=== PATIENT | female | born 1955 | race Caucasian/White ===

== ENCOUNTER 2018-08-30 07:00 | Outpatient (CLI) | payer BC, SELFPAY ==
[2018-08-30 10:13] LABS: Cholesterol 242 mg/dL (50-200); HDL Cholesterol 68 mg/dL (40-60); LDL CHOLESTEROL 140 mg/dL (<100); Triglyceride 121 mg/dL (30-150)
== END 2018-08-30 07:20 ==
PROVIDERS: PCP Family Medicine; Visit Provider Family Medicine
DX: E78.5 Hyperlipidemia, unspecified (principal)
CPT/HCPCS: 36415; 80061; 83721

== ENCOUNTER 2019-03-06 08:11 | Emergency (ER) | payer BC, SELFPAY ==
[2019-03-06] VITALS (55 sets, daily range): BP systolic 134–172; BP diastolic 62–99; PULSE 74–100; RESP 10–28; TEMP 37; O2SAT 88–100
--- NOTE | 2019-03-06 08:26 | DI.RAD_ITS ---
EXAM: XR CHEST 2V PA LATERAL INDICATION: dizziness, chest congestion. COMPARISON: No exams were available for comparison TECHNIQUE: 2D digital imaging was performed. FINDINGS: The heart is not enlarged. Lungs are generally clear with probable minimal changes of scarring. No pleural effusion seen. Mild pulmonary hyperinflation noted. IMPRESSION: Presumed COPD, no evidence of acute process.
--- NOTE | 2019-03-06 08:27 | ED.GENADUL_ITS ---
Discharge Plan Disposition Patient Disposition: HOME Condition: Fair Discharge Details Chief Complaint: Dizzy/Sync Clinical Impression: Pre-syncope, BP (high blood pressure), Acute dehydration, Tobacco use disorder, Left bundle branch block Primary Care Provider: Sunday Galvez ED Provider: Grecia Britt Home Meds and New Rx's Prescriptions: Continued [facility]-3 Krill Oil [id number] mg capsule 2 cap PO DAILY PRN RF: 0 multivitamin tablet 1 tab PO DAILY PRN RF: 0 Discharge Instructions Instructions: Dehydration (ED), Heart Block (ED) Additional Instructions: Stop smoking. Encourage hydration. You have declined admission today but may return at any time for reevaluation and potential admission. Please stay in close contact with your primary care. They should be arranging for your outpatient echocardiogram and stress testing. I have asked for these test to be performed as soon as possible. Please keep a Holter monitor on as advised by respiratory therapy. You have an appointment with your primary care on 03/11/2019. If you develop any chest pain, shortness of breath, headache, your dizziness returns or you develop other new/worsening symptoms please seek care immediately once again. Please also discussed your elevated blood pressure with your primary care. Left bundle branch block was noted on your EKG today, please discuss this more with your primary as well. Referrals: Sunday Galvez. [Primary Care Provider] - Discharge Data Discharge Date/Time-TO BE ENTERED AT DEPARTURE: 03/06/19 14:47 Medical Decision Making <AALIYAH Gonzalez - Last Filed: 03/07/19 09:53> Patient is a 63-year-old female with history of depression, anxiety, COPD. Patient is an active smoker and estimated pack-year history of 50. She reports that she was feeling well when she woke this morning. However, when grocery shopping today, she was reaching up to a top shelf to grab something and suddenly became dizzy. Reports she does have a history of vertigo and the symptoms felt very similar. Described the room is spinning and that she was also lightheaded. Was able to lower herself down to the ground and EMS was contacted. States that she was unable to stand at that time without worsening of her symptoms. She denies chest pain but states that she has had feeling of chest congestion. Patient associates this with her Smoking, states is been going on for quite some time and is unchanged. Estimates her smoking induced cough and chest congestion to have been going on for years. Denies any recent change in cough. Has not been bringing anything up with this. No recent travel. No fevers or chills. Denies MURDOCK, visual changes, no local areas of weakness. Patient does report that she daily goes up 3 flights of stairs for work but denies any increase in shortness of breath. No chest pain associated with this. This does not induce any symptoms. No pain in her back. No nausea or vomiting. No pain radiating into her arms or neck. Denies any palpitations with symptoms this morning. Currently reports more mild symptoms of lightheadedness with dizziness but symptoms are largely resolved. On exam, patient appears anxious. She is breathing quickly and deeply. At the time of transfer from EMS stretcher, she reports that her hands are tingling. EMS reports that the tachypnea was new from arrival. Her lungs are clear. Normal cardiac exam. No pedal edema or calf tenderness. Pulses are equal in upper and lower extremities. Normal abdominal exam. EKG was reviewed by Dr. Perez. Notable for a left bundle branch block. Patient reports she is never had an EKG historically so we have nothing for comparison. Negative for scar boluses criteria. No evidence of acute ischemic event at this time. I remain concern for possible cardiac etiology. This may also be an exacerbation of the patient's vertigo. Also considered pulmonary source. Plan for labs and chest x-ray. Discussed this plan with the patient who is in agreement. Currently asymptomatic. Labs reviewed, hemoglobin is elevated at 18.8. Initially, symptoms may be associated with concentration but platelet count white count are normal. This may also be associated with the patient's chronic smoking. D-dimer is normal at 365. Anion gap is elevated at 16.6 bicarb is normal, no acute electrolyte abnormalities. Glucose is elevated at 145. Unclear as to what is driving the patient's elevated anion gap. She is receiving IV fluids and we will recheck. Troponin is less than 0.05. I discussed these findings with the patient. She is resting currently is currently asymptomatic. Awaiting results from chest x- ray and plan to repeat troponin. Chest x-ray reviewed by radiologist: FINDINGS: The heart is not enlarged. Lungs are generally clear with probable minimal changes of scarring. No pleural effusion seen. Mild pulmonary hyperinflation noted. IMPRESSION: Presumed COPD, no evidence of acute process. Repeat EKG repeat troponin remains stable. Anion gap has corrected to 10 after IV fluids. Patient remains in asymptomatic and is resting comfortably. The patient and I discussed disposition options. This patient has a presumably new left bundle branch block in the setting of presyncope, feel she should be continued to be monitored. Discussed this plan with the patient who is in agreement. Consulted with hospitalist who advised that stress test would not be possible for the next 4 days. She advised that patient would need echo as well. She advised discussing with the need inpatient waiting with the patient and further discuss inpatient versus outpatient management. I discussed this with the patient and that, per hospitalist, patient would likely be sitting in a monitored bed for the next 4 days. At this point, the patient is preferring discharge. She does live locally and is able to return with any new or worsening symptoms quickly. We will place the patient on a Holter monitor. I called the primary care office and made appointment for next week in follow-up. I also asked that they help with the prior authorizations before but the echo and stress test and that these may be completed as soon as possible. I am hoping the echocardiogram will be able to perform tomorrow and that the stress test will be able to perform Sunday. Patient was given very strict return precautions. She lives with her son who is also present at this time we have discussed. She is able to return immediately with any new or worsening symptoms. I did offer transfer to another hospital as ideally the patient would be admitted and she declines this option as well. All of her questions and concerns were addressed . <Dameon Perez DO - Last Filed: 03/06/19 11:31> EKG 8: 17 Rate 90, NM 138, QTc 546, QRS 142, sinus rhythm, nonspecific QRS widening, appears consistent with a slightly atypical left bundle branch block, Negative for Scarbossa criterion. No prior EKG for comparison. Alternatively there may be a component of left ventricular hypertrophy, based on V3, which may be giving the atypical left bundle branch block like morphology. HPI <AALIYAH Gonzalez - Last Filed: 03/07/19 09:53> General Mode of arrival: EMS . Date/Time Provider Initiated Documentation: 03/06/19 08:18 . Limitations to Documentation: no limitations . Information obtained by: patient, EMS and RN notes reviewed . History of Present Illness 63 year old F presents to the emergency department with the chief complaint of Presyncopal event, described as moderate and similar to prior episodes (Reports similar to when she had vertigo historically), Quality is described as aching (Reports some vague discomfort in her chest but states that this is chronic and unchanged), and is localized to the chest. Patient reports no radiation. Patient started experiencing this minute(s) and it has been constant. other things that improve symptom(s), (Improvement of symptoms when supine) Movement worsens symptoms . Patient notes chest pain and cough (Reports chronic smoker's cough); denies diaphoresis, fever/chills, headaches, loss of appetite, nausea/vomiting, rash, shortness of breath, syncope and weakness. Patient did receive the following treatments prior to arrival, none Related Data Home Medications Medication Instructions Recorded Confirmed krill 500 mg-omega 3 115 mg-dha 30 2 cap PO DAILY PRN cap 05/29/18 03/06/19 mg-epa 64 [id number] capsule multivitamin 1 tab PO DAILY PRN tab 05/29/18 03/06/19 Allergies Allergy/AdvReac Type Severity Reaction Status Date / Time No Known Allergies Allergy Unverified 03/06/19 08:37 General Stated Complaint: Dizzy/Sync DENIA: 2 Review of Systems <AALIYAH Gonzalez - Last Filed: 03/07/19 09:53> Constitutional Constitutional: Reports as per HPI, Denies chills, Denies fever(s), Denies headache(s), Denies lethargy, Denies poor appetite and Denies weakness Eyes Eyes: Denies change in vision ENT Ears, Nose, Mouth, and Throat: Reports vertigo, Reports dizziness and Denies headache(s) Cardiovascular Cardiovascular: Reports as per HPI, Reports chest pain (low grade central chest discomfort that murdock been chronic for years and is un), Denies chest pain at rest, Denies chest pain with activity, Denies syncope, Denies pedal edema, Denies irregular heart rhythm, Denies claudication, Denies leg edema, Reports lightheadedness, Denies radiating jaw, neck or arm pain, Denies palpitations, Denies dyspnea, Denies dyspnea on exertion and Denies orthopnea Respiratory Respiratory: Reports as per HPI, Reports chest congestion, Reports cough (chronic, unchanged, associates with smoking), Denies pain on inspiration, Denies pain with cough, Denies dyspnea, Denies dyspnea on exertion and Denies wheezing Gastrointestinal Gastrointestinal: Reports as per HPI, Denies abdominal pain, Denies diarrhea, Denies nausea and Denies vomiting Musculoskeletal Musculoskeletal: Reports as per HPI, Denies abnormal gait, Denies back pain, Denies numbness and Denies tingling Integumentary/Breasts Skin/Breast: Reports as per HPI and Denies rash Neurologic Neurologic: Reports as per HPI, Denies abnormal movements, Denies abnormal speech, Denies abnormal gait, Denies confusion, Reports vertigo, Reports dizziness, Denies syncope, Denies headache(s), Denies lack of coordination, Denies numbness, Denies radicular pain, Denies sensory deficit, Denies tingling and Denies weakness Psychiatric Psychiatric: Denies confusion Endocrine Endocrine: Denies palpitations Allergic/Immunologic Allergic/Immunologic: Denies wheezing PFSH <AALIYAH Gonzalez - Last Filed: 03/07/19 09:53> Surgical History EMERGENT OPHORECTOMY 2005; TORSION OF RIGHT OVARY Family History Mother , 86 Diabetes Essential hypertension Heart disease Hyperlipidemia Stroke Father , 79 Diabetes Alcohol abuse Essential hypertension Heart disease Stroke Sister , 44 Cerebral aneurysm Stroke Paternal Grandmother Neoplasm UTERINE Maternal Grandmother Stroke Son Diabetes Social History Smoking/Tobacco Use Status: Current every day Tobacco Type: cigarettes Second Hand Exposure: Yes Alcohol Intake: current Alcohol Intake frequency: 0-2 drinks per day Alcohol type: beer and wine Drug use: Never Substance use type: does not use Household members: children Housing: other Details: [address] MOBILE HOME Pets and animals: Yes Pets and animals: dog(s) Sexually active: No Do you think of yourself as: straight/heterosexual Current gender identity: female What is your relationship status?: How often do you talk on the phone with friends or family?: three or more times per week How often do you get together with friends or relatives?: three or more times per week How often do you attend mormon or pentecostalism services?: 1-3 times per year Do you belong to any clubs or organized social groups?: no Panel score (0-1 are the most socially isolated patients): 1 What type of physical activity do you participate in: walking Duration: < 15 minutes/day Frequency: 3-4 times per week Deyanira/Sikhism: Sabianist Do you feel safe at home: Yes Do you feel safe in your relationship?: Yes Exam <AALIYAH Gonzalez - Last Filed: 03/07/19 09:53> Const General: cooperative, healthy appearing, no acute distress, well developed and anxious Nutritional Appearance: average body habitus and well nourished Orientation: alert, awake and oriented x3 HENMT Head: normal to inspection Ears: hearing grossly normal bilaterally Mouth: moist mucous membranes Chest Chest: normal inspection of the chest, normal palpation of entire chest wall and no crepitus Resp Effort & Inspection: normal respiratory effort, able to speak in complete sentences and no respiratory distress Auscultation: clear to auscultation bilaterally, no rales, no rhonchi and no wheezes Cardio Rate: regular rate Rhythm: regular rhythm Heart Sounds: S1 normal and S2 normal GI Inspection: normal to inspection, no edema and non-distended Palpation: soft, no hepatosplenomegaly, not firm, no guarding, not rigid and nontender Auscultation: normal bowel sounds Back/Spine/Pelvis Back: no CVA tenderness Thoracic/Lumbar Spine: thoracic and lumbar spine normal to inspection Skin General skin exam: no rashes or lesions noted Trauma: no lacerations or abrasions Neuro General: alert, awake and oriented x3 Cognition: normal cognition Speech: speech normal Extrem General: normal to inspection, normal capillary refill, no pedal edema and no calf tenderness Psych Appearance: grossly normal and well kempt Mental Status: mental status grossly normal Speech and Movement: speech and movement normal Course <AALIYAH Gonzalez - Last Filed: 03/07/19 09:53> Vital Signs Vital signs: Vital Signs Temperature 37.0 C 03/06/19 08:09 Pulse 87 03/06/19 08:09 Respiratory Rate 17 03/06/19 08:09 Blood Pressure 166/86 H 03/06/19 08:09 Pulse Oximetry 99 03/06/19 08:09 Temperature 37.0 C 03/06/19 08:09 Temperature Source Temporal Artery Scan 03/06/19 08:09 Pulse 87 03/06/19 08:09 Respiratory Rate 17 03/06/19 08:09 Blood Pressure 166/86 H 03/06/19 08:09 Blood Pressure Position Supine 03/06/19 08:09 Pulse Oximetry 99 03/06/19 08:09 Oxygen Delivery Method Room Air 03/06/19 08:09 Oxygen Flow Rate 0 03/06/19 08:09
[2019-03-06] MEDS: Aspirin 81 MG CHEW (08:29)
[2019-03-06] MEDS: Normal Saline 1,000 ML 500 ML IV (08:30)
[2019-03-06] MEDS: Normal Saline Flush 10 ML SYR IVP (08:30)
[2019-03-06 08:48] LABS: Abs Immature Grans 0.03 k/cumm (0.0-0.09); Absolute Basophil Count 0.03 k/cumm (0.0-0.2); Absolute Eosinophil Count 0.07 k/cumm (0.0-0.7); Absolute Lymphocyte Count 2.25 k/cumm (1.2-3.4); Absolute Monocyte Count 0.69 k/cumm (0.11-0.7); Absolute Neutrophil Count 4.73 k/cumm (1.2-6.7); Basophils % 0.4; Eosinophils % 0.9; HCT 56.5 % (36.0-46.0); HGB 18.8 g/dL (12.0-15.5); Immature Grans % 0.4; Lymphocytes % 28.8; Mean Corp. HGB Concentration 33.3 g/dL (32.0-36.0); Mean Corpuscular Hemoglobin 33.1 pg (27.0-33.0); Mean Corpuscular Volume 99.5 fL (80-95); Mean Platelet Volume 9.1 fL (8.0-11.0); Monocytes % 8.8; Neutrophils % 60.7; Platelet Count 246 x1000/uL (130-400); RBC 5.68 m/cumm (4.00-5.20); RBC Distribution Width 15.9 % (11.7-14.6)
[2019-03-06 08:57] LABS: ALT 21 U/L (14-59); AST 20 U/L (15-37); Albumin 3.8 g/dL (3.4-5.0); Alkaline Phosphatase 92 U/L (46-116); Anion Gap 16.6 mmol/L (3-11); BUN 7 mg/dL (7-18); Bilirubin, Total 0.6 mg/dL (0.2-1.0); CO2 22.4 mmol/L (21.0-32.0); CREATININE 0.93 mg/dL (0.55-1.02); Calcium 9.2 mg/dL (8.5-10.1); Chloride 103 mmol/L (98-107); Glucose 145 mg/dL (70-100); Magnesium 1.8 mg/dL (1.8-2.4); Potassium 3.8 mmol/L (3.5-5.1); Sodium 142 mmol/L (136-145); Total Protein 7.6 g/dL (6.4-8.2)
[2019-03-06 09:03] LABS: Troponin I < 0.05 ng/mL (0.00-0.06)
[2019-03-06] MEDS: Mylanta Suspension 30 ML CUP (09:17)
[2019-03-06] MEDS: Lidocaine 2% Viscous 15 ML CUP (09:17)
[2019-03-06 09:23] LABS: D-Dimer 365 ng/mlFEU (<500)
[2019-03-06 09:49] LABS: FREE T4 0.85 ng/dL (0.76-1.46)
[2019-03-06 10:26] LABS: Bilirubin Negative (Negative); Blood Trace-intact (Negative); Clarity Clear (Clear); Glucose Negative (Negative); Ketones 15 mg/dL (Negative); Leukocyte Esterase Negative (Negative); Nitrite Negative (Negative); Urobilinogen 0.2 EU/dL (Up TO 0.2)
[2019-03-06] MEDS: Normal Saline 1,000 ML 1000 ML IV (10:34)
[2019-03-06 10:37] LABS: Epithelial Cells Few HPF (Negative); RBC 0-2 (0-2); WBC 0-2 HPF (0-5)
[2019-03-06 10:38] LABS: Bacteria Negative HPF (Negative); C & S Indicated? No; Casts Negative LPF (Negative); Crystals Negative HPF (Negative); Mucus Negative (Negative)
[2019-03-06 11:16] LABS: BE (Venous) -1.1 mmol/L (-3-3); HCO3 (Venous) 24 mmol/L (22-28); O2 Sat (Venous) 89 % (70-80); TCO2 (Venous) 20 mmol/L (22-29); pCO2 (Venous) 38 mm/Hg (34-47); pH (Venous) 7.41 (7.32-7.43); pO2 (Venous) 56 mm/Hg (28-44)
[2019-03-06 11:27] LABS: BUN 6 mg/dL (7-18); CREATININE 0.65 mg/dL (0.55-1.02); Calcium 8.1 mg/dL (8.5-10.1); Chloride 109 mmol/L (98-107); Glucose 94 mg/dL (70-100); Potassium 3.8 mmol/L (3.5-5.1); Sodium 144 mmol/L (136-145)
[2019-03-06 11:54] LABS: Troponin I < 0.05 ng/mL (0.00-0.06)
[2019-03-06 12:04] LABS: Salicylate 4.7 mg/dL (2.8-20.0)
== END 2019-03-06 14:47 | disposition home or self-care (01) ==
PROVIDERS: Emergency Provider Physician Assistant; PCP Family Medicine
DX: R55 Syncope and collapse (principal); I10 Essential (primary) hypertension; E86.0 Dehydration; I44.7 Left bundle-branch block, unspecified
CPT/HCPCS: 36415; 80048; 80053; 82805; 93005; 96360; 96361; 99285; 71046; 80329; 81003; 81015; 83735; 84439; 84443; 84484; 85025; 85379; 93010; 93225

== ENCOUNTER 2019-03-10 08:42 | Outpatient (CLI) | payer BC, SELFPAY ==
--- NOTE | 2019-03-10 12:52 | HOLT_ITS ---
Holter Monitor Report Holter Monitor Note: This is a 48-hour event monitor placed for presyncope. ?Sinus rhythm was present for greater than 99% of the beats. Maximum heart rate 124 bpm, minimum heart rate 56 bpm, mean heart rate 78 bpm ?There were rare (less than 1%) premature atrial contractions and no couplets or triplets. ?There were no episodes of supraventricular tachycardia ?There were rare (less than 1%) premature ventricular contractions there was one couplet. ?There were no episodes of atrial fibrillation, no episodes of high degree AV block, and no pauses greater than 3 seconds. CC:JONELLE MTZ MD Dictated by: RYNE PLATA MD Dictated:: [id number] Transcribed Date: 03/10/19 Transcribed Time: 1252By: KHUSHI
== END 2019-03-10 09:02 ==
PROVIDERS: PCP Family Medicine; Visit Provider Family Medicine
DX: R55 Syncope and collapse (principal); I49.1 Atrial premature depolarization; I49.3 Ventricular premature depolarization
CPT/HCPCS: 93226

== ENCOUNTER 2019-03-25 01:48 | Outpatient (CLI) | payer BC, SELFPAY ==
--- NOTE | 2019-03-10 12:52 | W.HOLTRPT ---
Holter Monitor Report Holter Monitor Note: This is a 48-hour event monitor placed for presyncope. ?Sinus rhythm was present for greater than 99% of the beats. Maximum heart rate 124 bpm, minimum heart rate 56 bpm, mean heart rate 78 bpm ?There were rare (less than 1%) premature atrial contractions and no couplets or triplets. ?There were no episodes of supraventricular tachycardia ?There were rare (less than 1%) premature ventricular contractions there was one couplet. ?There were no episodes of atrial fibrillation, no episodes of high degree AV block, and no pauses greater than 3 seconds.
--- NOTE | 2019-03-25 07:22 | DI.US_ITS ---
APPROVED REPORT Other Information Study Quality: Fair Conclusion The left ventricular size and wall thickness are normal Estimated EF is 45-50%. Septal motion is co nsistent with an interventricular conduction delay/bundle branch block. There is otherwise mild globa l hypokinesis There is Stage II diastolic dysfunction There is no chamber enlargement There is no significant valuvlar disease EXAM: Comprehensive 2D, Doppler, and color-flow Echocardiogram Rhythm: BBB Indications: chest pain r07.9 Left Ventricle The left ventricle is top normal size. Left ventricular systolic function is mildly decreased. There is normal left ventricular wall thickness. Mild global hypokinesis Septal motion c/w IVCD The diastol ic function is abnormal. LVEF is estimated to be 45-50% Septal motion suggests LBBB Right Ventricle The right ventricle is normal size. The right ventricular systolic function is normal. Atria The left atrium size is normal. The right atrium size is normal. Aortic Valve Aortic valve is probably trileaflet. There is no aortic valvular stenosis. No aortic regurgitation is present. Mitral Valve The mitral valve is mildly thickened but opens well. Trivial mitral regurgitation. Tricuspid Valve The tricuspid valve is normal in structure. Trace tricuspid regurgitation. Great Vessels The aortic root is normal in size. IVC is normal in size and collapses >50% with inspiration. Pericardium Prominent anterior epicardial fat pad is present. 2D Dimensions IVSd 1.02 cm F: 0.6-1.0 LV EDV A2C 90.90 mL PWd 1.03 cm F: 0.6 - 1.0 LV EDV A4C 75.60 mL LVDd 5.53 cm F: 3.9 - 5.3 LA Volume Index A2C 13.03 mL/m2 LVDs 4.41 cm F: 2.2 - 3.5 LA Volume Index A4C 22.63 mL/m2 Aortic Root 2.90 cm F: 2.7 - 3.3 LA Volume Index Biplane 20.55 mL/m2 RA Area A4C 8.94 cm2 LA Area A4C 14.68 cm2 LVOT 2.18 cm (M/F) 1.5-2.5 LA Area A2C 9.31 cm2 Ascending Aorta 2.80 cm F: 2.3 - 3.1 EF AP4 49.47 % LVEF (Teich) 41.03 % EF AP2 49.72 % LVEF (Price's) 49.92 % F: 54 - 74 EF BP 49.92 % FS 20.30 % LV Diastology E/A Ratio 0.5 MED E' 0.04 (>0.07 m/s) LV E/e MED 9.28 (<14) Aortic Valve LVOT Area 3.72 cm2 LVOT Peak Len. 0.65 m/s LVOT Mean Len. 0.47 m/s LVOT Peak Gr. 1.67 mmHg RAJINDER Vmax Index 1.57 cm2/m2 LVOT Mean Gr. 0.99 mmHg LVOT VTI 0.13 m RAJINDER Mean Len. Index 1.39 cm2/m2 AoV Peak Len. 0.90 (0.5-1.3 m/s) AoV Mean Len. 0.73 m/s AO Peak GR. 3.21 mmHg AO Mean GR. 2.25 (<5 mmHg) AO VTI 0.16 (0.18-0.25 m) RAJINDER (VTI) 3.00 (2.5-4.5 cm2) RAJINDER (VTI) Index 1.75 cm/m2 Mitral Valve MV E Max Len. 0.40 (0.4-1.3 m/s) MVA VTI 6.91 (4.0-6.0 cm2) MV A Velocity 0.80 (0.4-1.3 m/s) E/A Ratio 0.50 Pulmonary Valve PV Peak Velocity 0.74 (0.5-1.5 m/s) Tricuspid Valve TR P. Velocity 2.57 m/s TV Regurg Vmax 2.57 m/s TR P. Gradient 26.52 mmHg
== END 2019-03-25 02:08 ==
PROVIDERS: PCP Family Medicine; Visit Provider Family Medicine
DX: I44.7 Left bundle-branch block, unspecified; I50.1 Left ventricular failure, unspecified; I10 Essential (primary) hypertension; R07.9 Chest pain, unspecified
CPT/HCPCS: 93306

== ENCOUNTER 2019-06-09 00:50 | Outpatient (CLI) | payer BC, SELFPAY ==
--- NOTE | 2019-06-09 09:42 | DI.NM_ITS ---
APPROVED REPORT Exam: Pharmacologic Patient Location: Out-Patient Room/Bed: Stress Nurse: Belen Guevara RN BMI: 21.29 Baseline Rhythm: Sinus Rhythm with Left BBB and Long QT interval Indications: Patient reports episode of ???Dizzyness??? while grocery shopping in February when she wa s reaching for something on the top shelf. Patient was brought to the ER as she was unable to stand w ithout making the dizziness worse. Medical History Medical History: History of left BBB, vertigo, anxiety, depression Cardiac Medications: Atorvastatin Allergies: No known drug allergies Cardiac Risk Factors: FHX of CAD, Hyperlipidemia, Smoking Previous Cardiac Procedures: None Pretest Chest Pain Characteristics: None Exercise History: Sedentary Physical Disabilities: None Lung Sounds: Crackles in bases bilaterally Heart Sounds: Regular Stress Test Details Test: Pharmacologic stress testing performed using 0.4 mg of regadenoson per 5 mL given IV over 10 s econds. Reason for pharmacologic stress test: LBBB. Rest Isotope: Tc-99m Sestamibi. Dose: 11.0 Date: 06/09/2019 Injection Time: 0845 Stress Isotope: Tc-99m Sestamibi. Dose: 37.0 Date: 06/09/2019 Injection Time: 1010 HR Max Heart Rate (APMHR): 155 bpm Resting HR Supine: 88 bpm Target HR (85% APMHR): 131 bpm Max HR Achieved: 102 bpm % of APMHR: 65 HR response to stress: Normal HR response to stress BP Resting BP Supine: 98/60 mmHg Max BP: 120/80 mmHg BP response to stress: Normal blood pressure response to stress. ECG Resting ECG: Sinus Rhythm with Left BBB and Long QT interval Stress ECG: Sinus Tachycardia LBBB ST Change: normal Arrhythmia: none Recovery ECG: Sinus Rhythm, LBBB Recovery ST Change: normal Recovery Arrhythmia: None Clinical Stress Symptoms: Right and Left Upper Arm Aching pain (4/10) at 43 seconds post Lexiscan injection that subsided at 3 minutes 47 seconds post Lexiscan injection. Chest pressure (4/10) at 43 seconds post Lexiscan injection that subsided by 5 minutes 41 seconds post Lexiscan injection. Stress ECG Conclusion 1. The ECG portion of this exam is nondiagnostic due to baseline left bundle branch block. Protocol Used: Regadenoson Stress Test Summary STAGE HR BP Symptoms NOTES Supine 85 98/60 Standing 1 min 102 120/80 2 min 3 min 101 100/68 4 min 5 min 6 min 94 100/80 7 min 8 min 9 min 10 min 1 min recovery 3 min recovery 6 min recovery MPI Conclusion Ejection fraction with stress was 25%. No wall motion abnormalities noted There is no evidence of reversible perfusion defect. Interpretation of the study was affected by significant bowel uptake. This represents a normal SPECT perfusion exam. Radiologist Interpretation Radiologist Interpretation by: Antonio Sage MD Interpretation Date/Time: 06/10/2019 13:35:19
[2019-06-09] MEDS: Regadenoson 0.4 MG/5 ML SYR IVP (11:08)
== END 2019-06-09 01:10 ==
PROVIDERS: PCP Family Medicine; Visit Provider Internal Medicine Cardiovascular Disease
DX: R55 Syncope and collapse (principal); R42 Dizziness and giddiness; I44.7 Left bundle-branch block, unspecified; E78.5 Hyperlipidemia, unspecified; F41.8 Other specified anxiety disorders; F17.200 Nicotine dependence, unspecified, uncomplicated; Z82.49 Family history of ischemic heart disease and other diseases of the circulatory system
CPT/HCPCS: 78452; 93017; J2785

== ENCOUNTER 2019-07-09 02:18 | Outpatient (RCR) | payer BC, SELFPAY ==
[2019-07-09 07:17] LABS: Abs Immature Grans 0.01 k/cumm (0.0-0.09); Absolute Basophil Count 0.04 k/cumm (0.0-0.2); Absolute Eosinophil Count 0.08 k/cumm (0.0-0.7); Absolute Monocyte Count 0.54 k/cumm (0.11-0.7); Absolute Neutrophil Count 4.09 k/cumm (1.2-6.7); Basophils % 0.6; Eosinophils % 1.1; HCT 53.2 % (36.0-46.0); Immature Grans % 0.1 %; Lymphocytes % 33.5; Mean Corp. HGB Concentration 33.8 g/dL (32.0-36.0); Mean Corpuscular Hemoglobin 32.5 pg (27.0-33.0); Mean Platelet Volume 9.4 fL (8.0-11.0); Monocytes % 7.5; Neutrophils % 57.2; Platelet Count 227 x1000/uL (130-400); RBC 5.54 m/cumm (4.00-5.20); RBC Distribution Width 15.2 % (11.7-14.6); White Blood Cell Count 7.16 k/cumm (4.4-10.8)
[2019-07-09] MEDS: Cosyntropin 0.25 MG VIAL IV (07:23)
[2019-07-09] MEDS: Normal Saline Flush 10 ML SYR IVP (07:25)
[2019-07-09 07:40] LABS: ALT 32 U/L (14-59); AST 21 U/L (15-37); Albumin 3.7 g/dL (3.4-5.0); Alkaline Phosphatase 72 U/L (46-116); Anion Gap 9.4 mmol/L (3-11); BUN 9 mg/dL (7-18); Bilirubin, Total 0.6 mg/dL (0.2-1.0); CO2 27.6 mmol/L (21.0-32.0); CREATININE 0.73 mg/dL (0.55-1.02); Calcium 8.8 mg/dL (8.5-10.1); Chloride 105 mmol/L (98-107); Glucose 100 mg/dL (74-106); Potassium 4.3 mmol/L (3.5-5.1); Sodium 142 mmol/L (136-145); TSH 10.06 uIU/mL (0.36-3.74); Total Protein 7.1 g/dL (6.4-8.2)
[2019-07-09 17:14] LABS: Cortisol (Baseline) 16 ug/dL (4-23)
== END 2019-07-26 23:59 | disposition home or self-care (01) ==
LOC: INF 02:18
PROVIDERS: PCP Family Medicine; Visit Provider Family Medicine
DX: E27.1 Primary adrenocortical insufficiency (principal)
CPT/HCPCS: 36415; 80048; 80053; 80400; 87206; 96374; 84439; 84443; 85025; J0834

== ENCOUNTER 2019-12-30 01:44 | Outpatient (CLI) | payer BC, SELFPAY ==
[2019-12-30 12:39] LABS: Abs Immature Grans 0.02 10^3/uL (0.0-0.06); Absolute Basophil Count 0.05 10^3/uL (0.0-0.2); Absolute Eosinophil Count 0.04 10^3/uL (0.0-0.7); Absolute Lymphocyte Count 2.32 10^3/uL (1.2-3.4); Absolute Monocyte Count 0.83 10^3/uL (0.1-0.8); Absolute Neutrophil Count 5.61 10^3/uL (1.2-6.7); Basophils % 0.6; Eosinophils % 0.5; HCT 44.7 % (36.0-46.0); HGB 14.5 g/dL (11.2-15.7); Immature Grans % 0.2; Lymphocytes % 26.2; MCHC 32.4 % (32.0-36.0); MCV 101.6 fL (80-95); Monocytes % 9.4; Neutrophils % 63.1; Nucleated RBC 0 %; Platelet Count 261 10^3/uL (130-400); RDW 14.9 % (11.7-14.6); RDW-SD 55.8 fL; WBC 8.87 10^3/uL (4.4-10.8)
[2019-12-30 12:54] LABS: TSH (W/Ref FT4) 3.12 uIU/mL (0.36-3.74)
== END 2019-12-30 02:04 ==
PROVIDERS: PCP Family Medicine; Visit Provider Family Medicine
DX: E03.9 Hypothyroidism, unspecified
CPT/HCPCS: 36415; 84443; 85025

== ENCOUNTER 2020-08-10 22:27 | Outpatient (REF) | payer BC, SELFPAY ==
[2020-08-10 21:32] LABS: Calculated LDL 67 mg/dL (<100); Cholesterol 191 mg/dL (<200); HDL Cholesterol 106 mg/dL (40-60); Triglyceride 92 mg/dL (<150)
[2020-08-10 22:00] LABS: FREE T4 0.85 ng/dL (0.76-1.46)
== END 2020-08-10 22:28 | disposition home or self-care (01) ==
LOC: LBN 22:27
PROVIDERS: PCP Family Medicine; Visit Provider Family Medicine
DX: E78.5 Hyperlipidemia, unspecified (principal); E03.9 Hypothyroidism, unspecified
CPT/HCPCS: 80061; 84439; 84443

== ENCOUNTER 2020-11-17 02:04 | Outpatient (CLI) | payer BC, SELFPAY ==
[2020-11-17 12:56] LABS: TSH (W/Ref FT4) 2.37 uIU/mL (0.36-3.74)
== END 2020-11-17 02:05 | disposition home or self-care (01) ==
LOC: LOS 02:04
PROVIDERS: PCP Family Medicine; Visit Provider Family Medicine
DX: E03.9 Hypothyroidism, unspecified (principal)
CPT/HCPCS: 36415; 84443

== ENCOUNTER 2021-01-07 03:05 | Outpatient (CLI) | payer BC, SELFPAY ==
--- NOTE | 2021-01-07 08:48 | DI.MAMMO_ITS ---
Exam(s) MAMMO SCREENING EXAM: MAMMO SCREENING CLINICAL HISTORY: screening,Z12.39 TECHNIQUE: Bilateral full field digital CC and MLO mammographic images were obtained with 3D tomosyn thesis and utilizing computer aided detection (CAD). COMPARISON: None. FINDINGS: Masses/Architectural Distortion: There is an asymmetry in the upper left breast on the MLO view. Microcalcifications: No suspicious pleomorphic-type are seen. Skin Thickening/Nipple Retraction: None. IMPRESSION: 1. Asymmetry in the upper left breast on the MLO view. 2. This area should be further evaluated with a spot compression view. Ultrasound may be indicated a t that time. BI-RADS Category 0 - Assessment Incomplete: Need additional imaging evaluation Breast Density - Category B - Scattered areas of fibroglandular density Breast density category C or D implies that the patient has dense breast tissue. Dense breast tissue is very common and is not abnormal but dense breast tissue can make it harder to find cancer on a ma mmogram. Also, dense breast tissue may increase their breast cancer risk. This information about the result of the mammogram report was provided to the patient to raise their awareness. Use this report when you speak with the patient about their risks for breast cancer, which includes their family hist ory. At that time, you may recommend for more screening tests (Ultrasound or MRI) as they might be us eful based on their risk. A negative radiographic report should not delay biopsy if a dominant or clinically suspicious mass is present. Up to ten percent of cancers are not identified on mammography. A negative report may reinforce clinical impression. Adenosis and dense breasts may obscure an underlying neoplasm. False positive reports average 6 to 10%. Patient will receive a letter notifying them of these results.
== END 2021-01-07 03:25 ==
PROVIDERS: PCP Family Medicine; Visit Provider Family Medicine
DX: Z12.31 Encounter for screening mammogram for malignant neoplasm of breast (principal); R92.8 Other abnormal and inconclusive findings on diagnostic imaging of breast
CPT/HCPCS: 77063; 77067

== ENCOUNTER 2021-01-27 01:32 | Outpatient (CLI) | payer BC, SELFPAY ==
--- NOTE | 2021-01-27 | DI.MAMMO_ITS ---
Exam(s) MAMMO SCREEN CALL BACK UNI EXAM: MAMMO SCREEN CALL BACK UNI CLINICAL HISTORY: F/U MAMMO, LT BREAST ASYMMETRY,R92.8 TECHNIQUE: Spot compression left MLO view and tomographic imaging were performed. COMPARISON: 2009 and 07 January 2013 FINDINGS: No suspicious masses or suspicious microcalcifications are seen. No persistent abnormality is seen on the additional views performed. The findings are consistent wit h overlying fibroglandular tissue. There has been no significant change from prior exam. IMPRESSION: BI-RADS Category 1, Negative Yearly screening mammography is recommended. Breast Density - Category B, scattered fibroglandular densities.
== END 2021-01-27 01:52 ==
PROVIDERS: PCP Family Medicine; Visit Provider Family Medicine
DX: R92.8 Other abnormal and inconclusive findings on diagnostic imaging of breast (principal)
CPT/HCPCS: 77063; 77067

== ENCOUNTER 2021-02-28 18:06 | Outpatient (CLI) | payer BC, SELFPAY ==
--- NOTE | 2021-02-28 18:15 | RT.EKG_ITS ---
APPROVED REPORT Exam: Resting ECG Reason for Exam: Exhaustion/sob Patient Location: O HR:108 bpm ECG Measurements Heart Rate 108 AXIS IA 151 P 0 QRSd 166 QRS -58 QT 418 T 113 QTc 561 Conclusion Sinus tachycardia...rate> 99 Probable left atrial enlargement...P >50mS, <-0.10mV V1 Left bundle branch block...QRSd>120, broad/notched R ST elevation secondary to IVCD...Multiple VCG criteria
--- NOTE | 2021-02-28 20:10 | DI.VRAD_ITS ---
PROCEDURE INFORMATION: Exam: XR Chest Exam date and time: 02/28/2021 6:24 PM Age: 65 years old Clinical indication: Shortness of breath TECHNIQUE: Imaging protocol: XR of the chest. Views: 2 views. COMPARISON: CT CHEST LUNG CANCER SCREEN 19/08/2020 14:04 FINDINGS: Lungs: Prominent central pulmonary vasculature. No focal consolidation. Pleural spaces: Bilateral pleural effusions. Heart/Mediastinum: Marked cardiomegaly. Vasculature: Atherosclerotic disease. Bones/joints: Unremarkable for patient's age. IMPRESSION: Marked cardiomegaly. Pulmonary vascular congestion. Bilateral pleural effusions. Dictated and Authenticated by: Olga Guadarrama MD. Ordering:CITLALI Martinez MD
== END 2021-02-28 18:07 | disposition home or self-care (01) ==
PROVIDERS: PCP Family Medicine; Visit Provider Nurse Practitioner Family
DX: R53.83 Other fatigue (principal)
CPT/HCPCS: 93010

== ENCOUNTER 2021-02-28 19:05 | Emergency (ER) | payer BC, SELFPAY ==
[2021-02-28] VITALS (101 sets, daily range): BP systolic 103–109; BP diastolic 72–84; PULSE 102–109; RESP 15–50; TEMP 37.2; O2SAT 92–96
--- NOTE | 2021-02-28 19:00 | RT.EKG_ITS ---
APPROVED REPORT Exam: Resting ECG Reason for Exam: SHOB Patient Location: E HR:105 bpm ECG Measurements Heart Rate 105 AXIS SC 148 P 83 QRSd 169 QRS -58 QT 421 T 106 QTc 557 Conclusion Sinus tachycardia...rate> 99 Atrial premature complex...SV complex w/ short R-R interval Probable left atrial enlargement...P >50mS, <-0.10mV V1 Left bundle branch block...QRSd>120, broad/notched R ST elevation secondary to IVCD...Multiple VCG criteria does not meet sgarbossa criteria
--- NOTE | 2021-02-28 19:15 | RT.EKG_ITS ---
APPROVED REPORT Exam: Resting ECG Reason for Exam: SOB Patient Location: E HR:106 bpm ECG Measurements Heart Rate 106 AXIS MI 149 P 84 QRSd 166 QRS -57 QT 414 T 107 QTc 549 Conclusion Sinus tachycardia...rate> 99 Probable left atrial enlargement...P >50mS, <-0.10mV V1 Left bundle branch block...QRSd>120, broad/notched R ST elevation secondary to IVCD...Multiple VCG criteria
--- NOTE | 2021-02-28 19:25 | ED.GENADUL_ITS ---
Discharge Plan Disposition Patient Disposition: OTHER Condition: Serious Discharge Details Clinical Impression: Dilated cardiomyopathy, Non-ST elevation CA (NSTEMI), Heart failure, Transaminitis Primary Care Provider: Sunday Galvez ED Provider: Grecia Britt Home Meds and New Rx's Prescriptions: No Action Spiriva Respimat 1.25 mcg/actuation mist 2 puff inhalation DAILY Qty: 4 RF: 5 atorvastatin 20 mg tablet 20 mg PO DAILY Qty: 90 RF: 6 omeprazole 20 mg capsule,delayed release(DR/EC) 20 mg PO DAILY Qty: 30 RF: 0 multivitamin tablet 1 tab PO DAILY PRN RF: 0 levothyroxine 75 mcg tablet 75 mcg PO DAILY Qty: 90 RF: 3 albuterol sulfate [Ventolin HFA] 90 mcg/actuation HFA aerosol inhaler 2 puff inhalation QID PRN (Reason: shortness of breath or wheezing) Qty: 8.5 RF: 3 Discharge Data Discharge Date/Time-TO BE ENTERED AT DEPARTURE: 02/28/21 22:35 Medical Decision Making Patient is a pleasant 65-year-old female presenting today, sent over by the urgent care, with chief complaint of shortness of breath. Patient reports she has chronic shortness of breath with this but this is increased today. States that shortness of breath is increased with exertion. She denies any chest pain. However, she does report she has chronic epigastric pain. She was put on omeprazole 1 week ago and this has improved some. Stated this can occasionally radiate into her chest but states is only associated with food, particularly spicy food. Complete, although temporary, relief with Mylanta. No exertional component to this. No nausea or vomiting. No dizziness. No syncope. Denies any pleuritic pain. No pain into her back, no tearing pain. Patient reports that 9 days ago she drinking daily alcohol and stop smoking. On exam, patient appears nontoxic. She slightly tachycardic with a heart rate of 109. Her lungs are clear. Abdomen is tender in epigastric region but no peritoneal findings. Patient reports subjective lower extremity edema although I do not note this on clinical exam. She does state that this is unusual for her and she is not had an elevation like this in the past. Past medical history is pertinent for hypothyroidism, polycythemia, hypercholesterolemia, left bundle branch block, depression, anxiety, COPD. Differential at this time includes ACS, heart failure. I did consider PE, patient states that she is very sedentary throughout the course of the day although she does not have any personal or familial history of blood clots that she is aware of. Screen with a D-dimer. Also screen for potential heart failure with a BNP with increase shortness of breath and lower extremity edema. She does not exhibit any evidence to suggest infectious etiology. A chest x-ray was ordered as an outpatient, results are pending. I do find ACS less likely she is not having any exertional chest pain ECG reviewed by Dr. Arango. LBBB, negative for Sgarbossa criteria. Reviewed CXR, I am concerned that her cardiac silhouette is notably enlarged compared to CXR dated 2019. Dr. Arango preformed bedside US, notable dialated cardiomyopathy. He estimates EF at 10%. This is down from 50% from echo completed in 2019. Contacted by lab, patient has elevated tropponin of 0.12. Will give ASA. LFTs notably elevated, will obtain coags prior to heparinizing. Concerned for ACS. Cardiomyopathy and sudden change in symptoms also has me concerned for Takosubo. This could be driven by her recent sudden cessation in ETOH and smoking. Has also added hepatitis panel. Have requested consultation with [place] [facility] advised [place] but will allow for cardiac consultation. Will also begin to find alternative bed placement. FINDINGS: Lungs: Prominent central pulmonary vasculature. No focal consolidation. Pleural spaces: Bilateral pleural effusions. Heart/Mediastinum: Marked cardiomegaly. Vasculature: Atherosclerotic disease. Bones/joints: Unremarkable for patient's age. IMPRESSION: Marked cardiomegaly. Pulmonary vascular congestion. Bilateral pleural effusions. Consulted with Dr. Mendez. He reviewed XR and EKG. We discussed presentation and hx. He advised he is concerned for LAD or Takosubo. Advised patient needs urgent cath. Recommended ASA, Plavis and heparin. They are unable to accept secondary to bed availability. Multiple hospitals contacted, closest hospital with bed availability [facility]. Patient had recurrence of her GERD, she has been dealing with tis frequently and finds TUMS or Mylanta helpful. Will give dose of Mylanta now. Consulted with Dr. Valdez with cardiology at [facility]. He advised to hold off on Heparin. His primary concern is heart failure. He accepts patient is transfer. Discussed with patient, she agrees to transfer. Patient had temporary relief with Mylant. She states pain has come back. REevaluated her. Lungs remain clear, hemodynamically stable. She denies CP or increased SOB while on the stretcher. She advises that this is the same as her GERD symptoms in the past, will give Protonix and TUMS. At the time of discharge, patient stable, comfortable with no CP or SOB at rest. Weight 62.7kg. HPI General Mode of arrival: ambulatory . Date/Time Provider Initiated Documentation: 02/28/21 19:06 . Limitations to Documentation: no limitations . Information obtained by: patient, RN/MD (contacted by provider at urgent care prior to arrival), RN notes reviewed and old records reviewed . History of Present Illness 65 year old F presents to the emergency department with the chief complaint of SOB, described as moderate and similar to prior episodes (reports baseline SOB, increased today), Quality is described as other (patient denies any pain currently), and is localized to the chest. Patient reports no radiation. Patient started experiencing this hour(s) (noted increased exertional SOB when she woke this AM) and it has been constant. Immobilization improves symptom(s), Movement worsens symptoms . Patient notes no other symptoms. and shortness of breath; denies chest pain, cough, fever/chills, loss of appetite, nausea/vomiting and syncope. Patient did receive the following treatments prior to arrival, none Related Data Home Medications Medication Instructions Recorded Confirmed multivitamin 1 tab PO DAILY PRN tab 05/29/18 02/28/21 levothyroxine 75 mcg tablet 75 mcg PO DAILY #90 tab 09/29/20 02/28/21 atorvastatin 20 mg tablet 20 mg PO DAILY #90 tab 11/23/20 02/28/21 tiotropium bromide 1.25 2 puff INHALATION DAILY #4 g 11/23/20 02/28/21 mcg/actuation mist for inhalation omeprazole 20 mg capsule,delayed 20 mg PO DAILY #30 cap 02/22/21 02/28/21 release albuterol sulfate 90 mcg/actuation 2 puff INHALATION QID PRN #8.5 g 02/28/21 aerosol inhaler Previous Rx's Medication Instructions Recorded levothyroxine 75 mcg tablet 75 mcg PO DAILY #90 tab 09/29/20 atorvastatin 20 mg tablet 20 mg PO DAILY #90 tab 11/23/20 tiotropium bromide 1.25 2 puff INHALATION DAILY #4 g 11/23/20 mcg/actuation mist for inhalation omeprazole 20 mg capsule,delayed 20 mg PO DAILY #30 cap 02/22/21 release albuterol sulfate 90 mcg/actuation 2 puff INHALATION QID PRN #8.5 g 02/28/21 aerosol inhaler Allergies Allergy/AdvReac Type Severity Reaction Status Date / Time No Known Allergies Allergy Verified 02/28/21 19:17 General Stated Complaint: SOB DENIA: 3 Review of Systems Constitutional Constitutional: Reports as per HPI, Denies chills, Denies fever(s), Denies headache(s) and Denies poor appetite Eyes Eyes: Denies change in vision ENT Ears, Nose, Mouth, and Throat: Denies dizziness and Denies headache(s) Cardiovascular Cardiovascular: Reports as per HPI, Denies chest pain, Denies chest pain at rest, Denies chest pain with activity, Denies diaphoresis, Denies syncope, Reports pedal edema, Reports leg edema, Denies lightheadedness, Denies radiating jaw, neck or arm pain, Reports dyspnea and Reports dyspnea on exertion Respiratory Respiratory: Reports as per HPI, Denies chest congestion, Denies cough, Denies pain on inspiration, Denies pain with cough, Reports dyspnea, Reports dyspnea on exertion and Denies wheezing Gastrointestinal Gastrointestinal: Reports as per HPI, Reports abdominal pain (reports chronic epigastric pain), Denies diarrhea, Denies nausea and Denies vomiting Musculoskeletal Musculoskeletal: Reports as per HPI and Denies back pain Integumentary/Breasts Skin/Breast: Reports as per HPI and Denies rash Neurologic Neurologic: Reports as per HPI, Denies dizziness, Denies syncope and Denies headache(s) Allergic/Immunologic Allergic/Immunologic: Denies wheezing PFSH Medical History Episode of syncope Polycythemia Surgical History EMERGENT OPHORECTOMY 2004; TORSION OF RIGHT OVARY Family History Mother , 86 Diabetes Essential hypertension Heart disease Hyperlipidemia Stroke Father , 79 Diabetes Alcohol abuse Essential hypertension Heart disease Stroke Sister , 44 Cerebral aneurysm Stroke Paternal Grandmother Uterine cancer Maternal Grandmother Stroke Son Diabetes Son No problems noted. Sister No problems noted. Sister No problems noted. Brother No problems noted. Brother No problems noted. Social History Smoking/Tobacco Use Status: Former Tobacco Use Quit status: considering quitting Second Hand Exposure: Yes Smoking risk assessment performed?: Yes Alcohol Intake: former Drug use: Never Substance use type: does not use Counseling given: No Counseling provided: none Caregiver/Support person: No Household members: children Communication Needs: None Pets and animals: Yes Pets and animals: cat(s) and dog(s) Sexually active: No Do you think of yourself as: straight/heterosexual Current gender identity: female What is your relationship status?: never How often do you talk on the phone with friends or family?: twice per week How often do you get together with friends or relatives?: twice per week Do you belong to any clubs or organized social groups?: no Panel score (0-1 are the most socially isolated patients): 1 What type of physical activity do you participate in: walking Duration: 15-30 minutes/day Frequency: 3-4 times per week Deyanira/Rastafarian: Congregational Special deyanira needs: No Seatbelt use: always Drive intox or ride w/intox star route mail driver: No Do you feel safe at home: Yes Do you feel safe in your relationship?: Yes Exam Const General: cooperative, healthy appearing, comfortable, no acute distress and well developed Nutritional Appearance: average body habitus and well nourished Orientation: alert, awake and oriented x3 HENMT Head: normal to inspection Ears: hearing grossly normal bilaterally Mouth: moist mucous membranes Chest Chest: normal inspection of the chest, normal palpation of entire chest wall and no crepitus Resp Effort & Inspection: normal respiratory effort, able to speak in complete sentences and no respiratory distress Auscultation: clear to auscultation bilaterally, no rales, no rhonchi and no wheezes Cardio Rate: tachycardic Rhythm: regular rhythm Heart Sounds: S1 normal and S2 normal GI Inspection: normal to inspection, no edema and non-distended Palpation: soft, no hepatosplenomegaly, not firm, no guarding, not rigid and tender in the epigastrum Auscultation: normal bowel sounds Skin General skin exam: no rashes or lesions noted Trauma: no lacerations or abrasions Neuro General: patient alert, patient awake and patient oriented x3 Cognition: normal cognition Speech: speech normal Gait: normal gait Extrem General: normal to inspection, capillary refill normal, no pedal edema, no calf tenderness, normal gait and other (2+ distal pulses) Psych Appearance: grossly normal and well kempt Mental Status: mental status grossly normal Speech and Movement: speech and movement normal Course Vital Signs Vital signs: Vital Signs Temperature 37.2 C 02/28/21 19:15 Pulse 109 H 02/28/21 19:15 Respiratory Rate 22 02/28/21 19:15 Blood Pressure 103/84 02/28/21 19:15 Pulse Oximetry 96 02/28/21 19:15 Temperature 37.2 C 02/28/21 19:15 Temperature Source Temporal Artery Scan 02/28/21 19:15 Pulse 109 H 02/28/21 19:15 Respiratory Rate 22 02/28/21 19:15 Respiratory Effort Short of Breath 02/28/21 19:19 Respiratory Depth Normal 02/28/21 19:19 Respiratory Pattern Normal 02/28/21 19:19 Blood Pressure 103/84 02/28/21 19:15 Blood Pressure Position Sitting 02/28/21 19:15 Pulse Oximetry 96 02/28/21 19:15 Oxygen Delivery Method Room Air 02/28/21 19:15 Oxygen Flow Rate 0 02/28/21 19:15 Pain Level 1 02/28/21 19:15 PAWSS Have you Been Recently Intoxicated or Drunk Within the Last 30 days?: Yes Have you Ever Experienced Previous Episodes of Alcohol Withdrawal?: Yes Have you ever Experienced Withdrawal Seizures?: No Have you ever Experienced Delirium Tremens(DT)s?: No Have you ever undergone Alcohol Rehabilitation Treatment (i.e, inpt ot outpatient treatment programs)?: No Have you ever Experienced Blackouts?: No Have you ever Combined Alcohol with other Downers within the last 90 days?: No Have you ever Combined Alcohol with any other Substance of Abuse during the last 90 days?: No Positive Blood Alcohol level on Presentation? [PCS.BAL]: No Evidence of Increased Autonomic Activity (i.e. HR>120, tremor, sweating, agitation, nausea)?: No Result: 2
[2021-02-28 19:45] LABS: Abs Immature Grans 0.02 10^3/uL (0.0-0.06); Absolute Basophil Count 0.07 10^3/uL (0.0-0.2); Absolute Eosinophil Count 0.02 10^3/uL (0.0-0.7); Absolute Lymphocyte Count 1.65 10^3/uL (1.2-3.4); Absolute Monocyte Count 0.88 10^3/uL (0.1-0.8); Basophils % 0.9; Eosinophils % 0.3; HCT 48.9 % (36.0-46.0); HGB 16.3 g/dL (11.2-15.7); Immature Grans % 0.3; MCH 33.1 pg (27.0-33.0); MCHC 33.3 % (32.0-36.0); MCV 99.2 fL (80-95); MPV 11.3 fL (8.0-11.0); Monocytes % 11.2; Neutrophils % 66.3; Nucleated RBC 0 %; Platelet Count 167 10^3/uL (130-400); RBC 4.93 10^6/uL (3.93-5.22); RDW 14.7 % (11.7-14.6); RDW-SD 54.3 fL; WBC 7.84 10^3/uL (4.4-10.8)
[2021-02-28 19:59] LABS: ALT 732 U/L (14-59); AST 762 U/L (15-37); Albumin 3.5 g/dL (3.4-5.0); Alkaline Phosphatase 114 U/L (46-116); Anion Gap 10.6 mmol/L (3-11); BUN 16 mg/dL (7-18); Bilirubin, Total 1.3 mg/dL (0.2-1.0); CO2 24.4 mmol/L (21.0-32.0); CREATININE 1.2 mg/dL (0.55-1.02); Calcium 9.3 mg/dL (8.5-10.1); Chloride 101 mmol/L (98-107); Estimated GFR 44.95 (mL/min/1.73m2); Glucose 112 mg/dL (74-106); Magnesium 2.3 mg/dL (1.8-2.4); Potassium 4.9 mmol/L (3.5-5.1); Sodium 136 mmol/L (136-145); Total Protein 6.8 g/dL (6.4-8.2)
[2021-02-28 20:00] LABS: Troponin I 0.12 ng/mL (<0.06)
[2021-02-28] MEDS: Mylanta Suspension 30 ML CUP PO (20:24)
[2021-02-28] MEDS: Aspirin 81 MG CHEW 324 MG CH (20:30)
--- NOTE | 2021-02-28 21:14 | NUR.NOTE ---
Lab calls to report blue top hemolyzed.Nursing Note:
[2021-02-28 21:18] LABS: NT-proBNP 20496 pg/mL (<300)
[2021-02-28] MEDS: Clopidogrel 300 MG TAB PO (21:18)
[2021-02-28] MEDS: Calcium Carbonate *TUMS* 500 MG CHEW 1000 MG PO (22:04)
[2021-02-28 22:05] LABS: COVID-19 PCR Negative (Negative); Source Nasal/Nares
[2021-02-28] MEDS: Pantoprazole 40 MG VIAL IVP (22:05)
[2021-02-28 22:08] LABS: PTT Activated 24.1 sec (21.0-27.5); Prothrombin Time 20.2 sec (9.3-11.0)
[2021-02-28 22:18] LABS: Troponin I 0.13 ng/mL (<0.06)
[2021-02-28 22:36] LABS: D-Dimer 6119 ng/mlFEU (<500)
[2021-03-02 12:29] LABS: Hepatitis A Antibody IgM Negative (Negative); Hepatitis B Core Antibody Negative (Negative); Hepatitis B surface Ag Negative (Negative); Hepatitis C Ab w Rflx HCV PCR Negative (Negative)
== END 2021-02-28 22:35 | disposition other institution (70) ==
PROVIDERS: Emergency Provider Physician Assistant; PCP Family Medicine
DX: I42.0 Dilated cardiomyopathy (principal); I21.4 Non-ST elevation (NSTEMI) myocardial infarction; R74.01 Elevation of levels of liver transaminase levels; I50.9 Heart failure, unspecified; Z20.822 Contact with and (suspected) exposure to COVID-19; Z03.818 Encounter for observation for suspected exposure to other biological agents ruled out
CPT/HCPCS: 36415; 80053; 86704; 86709; 86803; 87340; 87635; 93005; 96374; 99285; 99291; 83735; 83880; 84484; 85025; 85379; 85610; 85730; 93010

== ENCOUNTER 2021-02-28 19:24 | Outpatient (REF) | payer BC, SELFPAY ==
[2021-03-02 13:00] LABS: COVID-19 RT-PCR UVMMC Result Negative (Negative)
== END 2021-02-28 19:25 | disposition home or self-care (01) ==
LOC: NCHCN 19:24
PROVIDERS: PCP Family Medicine; Visit Provider Nurse Practitioner Family
DX: Z20.822 Contact with and (suspected) exposure to COVID-19 (principal)
CPT/HCPCS: U0003

== ENCOUNTER 2021-02-28 22:32 | Outpatient (CLI) | payer BC, SELFPAY ==
--- NOTE | 2021-02-28 18:15 | DI.RAD_ITS ---
Exam(s) XR CHEST 2V PA LATERAL EXAM: XR CHEST 2V PA LATERAL CLINICAL HISTORY: shortness of breath TECHNIQUE: 2D digital imaging was performed of the chest. Two images were obtained. PA and lateral views were obtained. COMPARISON: CR XR CHEST 2V PA LATERAL from 03/06/2019 FINDINGS: MEDIASTINUM: Normal. HEART: There is marked cardiomegaly. PULMONARY VASCULATURE: There may be mild pulmonary venous congestion. LUNGS: No focal infiltrates. The lungs are hyperinflated suggesting underlying COPD. PLEURAL SPACE: There is blunting of the posterior costophrenic angle suggesting small bilateral pleur al effusions versus scarring. BONE:Within normal limits for the patient's age. OTHER FINDINGS:Normal. IMPRESSION: Cardiomegaly and pulmonary venous congestion. Question of small bilateral pleural effusions. DATA REPOSITORY: RADIATION DOSE DELIVERED:
== END 2021-02-28 22:52 ==
PROVIDERS: PCP Family Medicine; Visit Provider Nurse Practitioner Family
DX: J44.9 Chronic obstructive pulmonary disease, unspecified (principal); I51.7 Cardiomegaly; R09.89 Other specified symptoms and signs involving the circulatory and respiratory systems
CPT/HCPCS: 71046

== ENCOUNTER 2021-03-15 10:04 | Outpatient (CLI) | payer BC, SELFPAY ==
[2021-03-15 12:34] LABS: HCT 45.5 % (36.0-46.0); HGB 14.8 g/dL (11.2-15.7); MCHC 32.5 % (32.0-36.0); MCV 98.5 fL (80-95); MPV 12.3 fL (8.0-11.0); Platelet Count 155 10^3/uL (130-400); RBC 4.62 10^6/uL (3.93-5.22); RDW 14.8 % (11.7-14.6); RDW-SD 54.2 fL; WBC 6.78 10^3/uL (4.4-10.8)
[2021-03-15 12:42] LABS: ALT 177 U/L (14-59); AST 41 U/L (15-37); Albumin 3.7 g/dL (3.4-5.0); Alkaline Phosphatase 112 U/L (46-116); Anion Gap 6.1 mmol/L (3-11); BUN 14 mg/dL (7-18); Bilirubin, Total 1.1 mg/dL (0.2-1.0); CO2 31.9 mmol/L (21.0-32.0); Calcium 8.9 mg/dL (8.5-10.1); Chloride 94 mmol/L (98-107); Estimated GFR 55.47 (mL/min/1.73m2); Glucose 80 mg/dL (74-106); NT-proBNP 9034 pg/mL (<300); Potassium 4.4 mmol/L (3.5-5.1); Sodium 132 mmol/L (136-145); Total Protein 6.7 g/dL (6.4-8.2)
== END 2021-03-15 10:05 | disposition home or self-care (01) ==
LOC: LOS 10:06
PROVIDERS: PCP Family Medicine; Visit Provider Family Medicine
DX: I10 Essential (primary) hypertension (principal); I50.9 Heart failure, unspecified; K75.9 Inflammatory liver disease, unspecified
CPT/HCPCS: 36415; 80053; 85027; 83880

== ENCOUNTER 2021-04-11 10:14 | Inpatient (IN) | payer BC, SELFPAY ==
[2021-04-11] VITALS (41 sets, daily range): BP systolic 79–104; BP diastolic 42–89; PULSE 94–138; RESP 13–32; TEMP 36.1–36.8; O2SAT 85–98
--- NOTE | 2021-04-11 | DI.US_ITS ---
Exam(s) US EXTREMITY VENOUS BI EXAM: US EXTREMITY VENOUS BI CLINICAL HISTORY: calf pain TECHNIQUE: Grayscale, color, and doppler imaging of the deep venous system of both lower extremities was performed. COMPARISON: None FINDINGS: There is no evidence of intraluminal thrombus and there is normal compression and augmentation demons trated within the common femoral veins, femoral veins, and popliteal veins of both lower extremities. In the calves the interrogated veins also exhibit normal compression/ augmentation properties. The greater saphenous veins also appear patent as do the saphenofemoral junctions bilaterally.. IMPRESSION: 1. No ultrasound evidence of DVT in either lower extremity. DATA REPOSITORY:
--- NOTE | 2021-04-11 10:15 | RT.EKG_ITS ---
APPROVED REPORT Exam: Resting ECG Reason for Exam: increased edema Patient Location: E HR:103 bpm ECG Measurements Heart Rate 103 AXIS ME 151 P 68 QRSd 180 QRS -63 QT 426 T 105 QTc 559 Conclusion Sinus tachycardia...rate> 99 Ventricular premature complex...V complex w/ short R-R interval Left atrial enlargement...P, P'>60mS, <-0.15mV V1 Left bundle branch block...QRSd>120, broad/notched R ST elevation secondary to IVCD...Multiple VCG criteria findings similar to prior, non-diagnostic EKG I have reviewed and interpreted ECG and agree with software generated interpretation.
--- NOTE | 2021-04-11 10:30 | DI.RAD_ITS ---
Exam(s) XR PORTABLE CHEST AP EXAM: XR PORTABLE CHEST AP CLINICAL HISTORY: orthopnea, h/o CHF. TECHNIQUE: 2D digital imaging was performed. COMPARISON: No exams were available for comparison FINDINGS: Cardiomegaly again noted. The mediastinum is not widened. There are no infiltrates nor obvious pleural effusions evident on this single view which does not inc lude the lower most aspect of the costophrenic angles. There is no pulmonary edema. No pneumothorax IMPRESSION: Cardiomegaly again noted.No acute pulmonary findings. DATA REPOSITORY: RADIATION DOSE DELIVERED: All CT scans at this facility use at least one of these dose optimization techniques: automated exposure control; mA and/or kV adjustment per patient size (includes targeted e xams where dose is matched to clinical indication); or iterative reconstruction.
--- NOTE | 2021-04-11 10:41 | ED.GENADUL_ITS ---
Discharge Plan Disposition Patient Disposition: [facility] INPATIENT Condition: Stable Discharge Details Clinical Impression: Dilated cardiomyopathy, Heart failure Primary Care Provider: Sunday Galvez ED Provider: Amber Regalado Home Meds and New Rx's Prescriptions: No Action Spiriva Respimat 1.25 mcg/actuation mist 2 puff inhalation DAILY Qty: 4 RF: 5 atorvastatin 20 mg tablet 20 mg PO DAILY Qty: 90 RF: 6 multivitamin tablet 1 tab PO DAILY PRN RF: 0 triamcinolone acetonide 0.1 % ointment 1 applic topical BID Qty: 80 RF: 0 spironolactone 25 mg tablet 12.5 mg PO DAILY Qty: 30 RF: 8 omeprazole magnesium [Prilosec OTC] 20 mg tablet,delayed release (DR/EC) 20 mg PO DAILY RF: 0 omeprazole 20 mg capsule,delayed release(DR/EC) 20 mg PO DAILY Qty: 90 RF: 3 famotidine 20 mg tablet 20 mg PO .evening Qty: 90 RF: 3 Eliquis 5 mg tablet 5 mg PO BID Qty: 60 RF: 1 torsemide 20 mg tablet 20 mg PO BID Qty: 60 RF: 8 levothyroxine 75 mcg tablet 75 mcg PO DAILY Qty: 90 RF: 3 albuterol sulfate [Ventolin HFA] 90 mcg/actuation HFA aerosol inhaler 2 puff inhalation QID PRN (Reason: shortness of breath or wheezing) Qty: 8.5 RF: 3 Medical Decision Making Nayeli De La Paz is a 65 y/o woman with history of dilated cardiomyopathy, hepatitis, hypothyroidism, polycythemia, hypercholesterolemia, left bundle branch block, COPD, alcohol use disorder presenting to the emergency department with lower extremity edema and decreased urine output in setting of recent admission to [facility] for CHF with EF of 15% and orthopnea for 1 month. On exam patient is chronically ill appearing but in no extremis. Lungs are clear to auscultation bilaterally, patient speaking in full sentences. There is 2+ bilateral lower extremity edema without posterior calf tenderness. Patient has chronic itching of her back and has multiple excoriated lesions over her back without evidence of cellulitis. I discussed patient with Dr. Parmar of cardiology who referred patient to emergency department. Dr. Parmar reports that patient typically has a heart rate of 100-110, and is also chronically hypotensive with a systolic blood pressure in the 80s. She states that she feels that patient symptoms are likely due to to lack of response to p.o. diuretics, and recommends patient receive IV diuretic and admission. Concern for likely acute on chronic CHF, less likely acute coronary syndrome, pulmonary embolism, other. Exam/history at this time not consistent with sepsis, acute aortic pathology, acute emergent intra- abdominal pathology. Plan for EKG, IV placement, screening labs, telemetry, 40 mg IV Lasix, chest x-ray, will monitor and reassess. Labs reviewed, troponin 0 0.07, hemoglobin 16, WBC 5.66, D-dimer 1479, potassium 4, BNP 24,588. Patient is currently anticoagulated on apixaban, no chest pain, no new shortness of breath, patient with chronic tachycardia 100-110, patient's current heart rate in the 90s. D-dimer significantly higher 02/28/2021 at 6119, doubt pulmonary embolism at this time, will hold off on CTA. I did discuss patient with cardiology at [facility] given patient's history of EF 15%. Raman Conroy of cardiology at [facility] has reviewed today's EKG, prior EKG, and chest x-ray. He recommends admission to [facility], 40 mg IV lasix twice daily with goal of 1 to 1.5 L diuresis per day, with patient for transfer tomorrow with accepting physician Dr. Bourgeois. Patient admitted to Dr. Harris, hospitalist. Medical Records Medical records reviewed: Yes I reviewed the patient's medical records. Imaging Data Radiologic Study: Attestation: I personally reviewed and interpreted this imaging study as follows: Radiologist's impression: EXAM: XR PORTABLE CHEST AP CLINICAL HISTORY: orthopnea, h/o CHF. TECHNIQUE: 2D digital imaging was performed. COMPARISON: No exams were available for comparison FINDINGS: Cardiomegaly again noted. The mediastinum is not widened. There are no infiltrates nor obvious pleural effusions evident on this single view which does not include the lower most aspect of the costophrenic angles. There is no pulmonary edema. No pneumothorax IMPRESSION: Cardiomegaly again noted.No acute pulmonary findings. Lab Data Lab results reviewed: Yes I reviewed the patient's lab results. Labs: Laboratory Tests Range/Units 11/15/21 11/15/21 11/15/21 10:35 10:35 10:35 WBC (4.4-10.8) 10^3/uL 5.66 RBC (3.93-5.22) 10^6/uL 5.08 Hgb (11.2-15.7) g/dL 16.0 H Hct (36.0-46.0) % 46.6 H MCV (80-95) fL 91.7 MCH (27.0-33.0) pg 31.5 MCHC (32.0-36.0) % 34.3 RDW (11.7-14.6) % 15.7 H Plt Count (130-400) 10^3/uL 132 MPV (8.0-11.0) fL 11.7 H Immature Gran % 0.2 Neutrophils % 63.0 Lymphocytes % 27.9 Monocytes % 8.0 Eosinophils % 0.2 Basophils % 0.7 Nucleated RBC % % 0 Absolute Neutrophils (1.2-6.7) 10^3/uL 3.57 Absolute Lymphocytes (1.2-3.4) 10^3/uL 1.58 Absolute Monocytes (0.1-0.8) 10^3/uL 0.45 Absolute Eosinophils (0.0-0.7) 10^3/uL 0.01 Absolute Basophils (0.0-0.2) 10^3/uL 0.04 PT (9.3-11.0) sec 23.8 H INR (0.9-1.1) 2.4 H D-Dimer (<500) ng/mlFEU 1479 H Sodium (136-145) mmol/L 131 L Potassium (3.5-5.1) mmol/L 4.0 Chloride (98-107) mmol/L 91 L Carbon Dioxide (21.0-32.0) mmol/L 30.0 Anion Gap (3-11) mmol/L 10.0 BUN (7-18) mg/dL 22 H Creatinine (0.55-1.02) mg/dL 1.5 H Estimated GFR/1.73 m2 (mL/min/1.73m2) 34.74 Glucose (74-106) mg/dL 117 H Calcium (8.5-10.1) mg/dL 9.2 Magnesium (1.8-2.4) mg/dL 2.5 H Total Bilirubin (0.2-1.0) mg/dL 3.1 H AST (15-37) U/L 82 H ALT (14-59) U/L 78 H Alkaline Phosphatase (46-116) U/L 125 H Troponin I (<0.06) ng/mL 0.07 H NT-Pro-B Natriuret Pep (<300) pg/mL 98125 H Total Protein (6.4-8.2) g/dL 6.8 Albumin (3.4-5.0) g/dL 3.6 TSH (0.36-3.74) uIU/mL 8.19 H Free T4 (0.76-1.46) ng/dL 1.18 Range/Units 04/11/21 13:30 WBC (4.4-10.8) 10^3/uL RBC (3.93-5.22) 10^6/uL Hgb (11.2-15.7) g/dL Hct (36.0-46.0) % MCV (80-95) fL MCH (27.0-33.0) pg MCHC (32.0-36.0) % RDW (11.7-14.6) % Plt Count (130-400) 10^3/uL MPV (8.0-11.0) fL Immature Gran % Neutrophils % Lymphocytes % Monocytes % Eosinophils % Basophils % Nucleated RBC % % Absolute Neutrophils (1.2-6.7) 10^3/uL Absolute Lymphocytes (1.2-3.4) 10^3/uL Absolute Monocytes (0.1-0.8) 10^3/uL Absolute Eosinophils (0.0-0.7) 10^3/uL Absolute Basophils (0.0-0.2) 10^3/uL PT (9.3-11.0) sec INR (0.9-1.1) D-Dimer (<500) ng/mlFEU Sodium (136-145) mmol/L Potassium (3.5-5.1) mmol/L Chloride (98-107) mmol/L Carbon Dioxide (21.0-32.0) mmol/L Anion Gap (3-11) mmol/L BUN (7-18) mg/dL Creatinine (0.55-1.02) mg/dL Estimated GFR/1.73 m2 (mL/min/1.73m2) Glucose (74-106) mg/dL Calcium (8.5-10.1) mg/dL Magnesium (1.8-2.4) mg/dL Total Bilirubin (0.2-1.0) mg/dL AST (15-37) U/L ALT (14-59) U/L Alkaline Phosphatase (46-116) U/L Troponin I (<0.06) ng/mL 0.07 H NT-Pro-B Natriuret Pep (<300) pg/mL Total Protein (6.4-8.2) g/dL Albumin (3.4-5.0) g/dL TSH (0.36-3.74) uIU/mL Free T4 (0.76-1.46) ng/dL HPI General Mode of arrival: ambulatory . Date/Time Provider Initiated Documentation: 04/11/21 10:23 . Limitations to Documentation: no limitations . Information obtained by: patient, RN/MD, RN notes reviewed and old records reviewed . HPI Narrative: Nayeli De La Paz is a 65 y/o woman with history of dilated cardiomyopathy, hepatitis, hypothyroidism, polycythemia, hypercholesterolemia, left bundle branch block, COPD, alcohol use disorder presenting to the emergency department with lower extremity edema. Patient reports that she was seen here in the emergency department on 02/28/2021. Record review shows ED visit for CHF with elevated troponin, patient was transferred to [facility]. Patient reports that since being discharged from [facility] she has had orthopnea and has been sleeping sitting upright. Patient was seen by cardiology on 04/07/2021 (Dr. Parmar). Torsemide was increased from daily to twice daily at that visit. Patient reports that over the past week she has had worsening edema of her legs, patient reports she typically does not have swelling in her legs. Patient also reports that she has had decreased urine output, rarely feels the need to urinate over the past few days. Last urination was this morning. She denies pain, fever, cough, worsening shortness of breath from baseline, nausea, vomiting, rash. Patient reports chronic itching of her back over the past 2 months or so, unchanged. Patient denies other medication changes. Related Data Home Medications Medication Instructions Recorded Confirmed multivitamin 1 tab PO DAILY PRN tab 05/29/18 04/11/21 levothyroxine 75 mcg tablet 75 mcg PO DAILY #90 tab 09/29/20 04/11/21 atorvastatin 20 mg tablet 20 mg PO DAILY #90 tab 11/23/20 04/11/21 tiotropium bromide 1.25 2 puff INHALATION DAILY #4 g 11/23/20 04/11/21 mcg/actuation mist for inhalation albuterol sulfate 90 mcg/actuation 2 puff INHALATION QID PRN #8.5 g 02/28/21 04/11/21 aerosol inhaler triamcinolone acetonide 0.1 % 1 applic TOPICAL BID #80 g 03/14/21 04/11/21 topical ointment spironolactone 25 mg tablet 12.5 mg PO DAILY #30 tab 03/24/21 04/11/21 apixaban 5 mg tablet 5 mg PO BID #60 tab 03/25/21 04/11/21 famotidine 20 mg tablet 20 mg PO .evening #90 tab 04/01/21 04/11/21 omeprazole 20 mg capsule,delayed 20 mg PO DAILY #90 cap 04/01/21 04/11/21 release omeprazole magnesium 20 mg 20 mg PO DAILY 04/01/21 04/11/21 tablet,delayed release torsemide 20 mg tablet 20 mg PO BID #60 tab 04/07/21 04/11/21 Previous Rx's Medication Instructions Recorded levothyroxine 75 mcg tablet 75 mcg PO DAILY #90 tab 09/29/20 atorvastatin 20 mg tablet 20 mg PO DAILY #90 tab 11/23/20 tiotropium bromide 1.25 2 puff INHALATION DAILY #4 g 11/23/20 mcg/actuation mist for inhalation albuterol sulfate 90 mcg/actuation 2 puff INHALATION QID PRN #8.5 g 02/28/21 aerosol inhaler triamcinolone acetonide 0.1 % 1 applic TOPICAL BID #80 g 03/14/21 topical ointment spironolactone 25 mg tablet 12.5 mg PO DAILY #30 tab 03/24/21 apixaban 5 mg tablet 5 mg PO BID #60 tab 03/25/21 famotidine 20 mg tablet 20 mg PO .evening #90 tab 04/01/21 omeprazole 20 mg capsule,delayed 20 mg PO DAILY #90 cap 04/01/21 release torsemide 20 mg tablet 20 mg PO BID #60 tab 04/07/21 Allergies Allergy/AdvReac Type Severity Reaction Status Date / Time No Known Allergies Allergy Verified 04/11/21 10:58 General Stated Complaint: GenMedical DENIA: 2 Review of Systems Narrative: Constitutional: denies fevers Eyes: denies eye pain ENT: denies ear pain, dental pain, sore throat Cardiovascular: denies chest pain, reports edema, chronic unchanged orthopnea Respiratory: denies SOB, cough GI: denies abdominal pain, vomiting, diarrhea : denies flank pain, reports decreased urine output MSK: denies back pain, neck pain, arthralgias, myalgias Skin: denies rash Neuro: denies headaches, numbness, weakness [facility] Active Problem List Alcohol abuse (Chronic) Insomnia (Acute) LV (left ventricular) mural thrombus (Acute) Chronic anticoagulation (Acute) Pruritus (Acute) Hypotension (Acute) Hepatitis (Acute) Dilated cardiomyopathy (Acute) Heart failure (Acute) Transaminitis (Acute) Weight loss (Acute) Hypothyroidism (Chronic) Polycythemia (Acute) Hypercholesteremia (Acute) LBBB (left bundle branch block) (Acute) Episode of syncope (Chronic) History of cervical dysplasia (Acute 08/27/14) Tobacco use disorder (Acute) Pruritus of vulva (Acute 08/27/14) Depression (Acute) Chronic low back pain (Acute) Anxiety (Acute) COPD (chronic obstructive pulmonary disease) (Acute) Surgical History EMERGENT OPHORECTOMY 2004; TORSION OF RIGHT OVARY Family History Mother , 86 Diabetes Essential hypertension Heart disease Hyperlipidemia Stroke Father , 79 Diabetes Alcohol abuse Essential hypertension Heart disease Stroke Sister , 44 Cerebral aneurysm Stroke Paternal Grandmother Uterine cancer Maternal Grandmother Stroke Son Diabetes Son No problems noted. Sister No problems noted. Sister No problems noted. Brother No problems noted. Brother No problems noted. Social History Smoking/Tobacco Use Status: Former Tobacco Use Quit status: considering quitting Second Hand Exposure: Yes Smoking risk assessment performed?: Yes Alcohol Intake: former Year quit: 2020 Drug use: Never Substance use type: does not use Counseling given: No Counseling provided: none Caregiver/Support person: No Household members: children Communication Needs: None Pets and animals: Yes Pets and animals: cat(s) and dog(s) Sexually active: No Do you think of yourself as: straight/heterosexual Current gender identity: female What is your relationship status?: never How often do you talk on the phone with friends or family?: twice per week How often do you get together with friends or relatives?: twice per week Do you belong to any clubs or organized social groups?: no Panel score (0-1 are the most socially isolated patients): 1 What type of physical activity do you participate in: walking Duration: 15-30 minutes/day Frequency: 3-4 times per week Deyanira/Samaritan: Anabaptist Special deyanira needs: No Seatbelt use: always Drive intox or ride w/intox compactor driver: No Do you feel safe at home: Yes Do you feel safe in your relationship?: Yes Exam Narrative Exam Narrative: Constitutional: well and [id number], pleasant, conversing normally HENT: head atraumatic/normocephalic/normal inspection, mucous membranes moist Eyes: conjunctiva normal, sclera normal, pupils 3mm b/l Neck: no stridor, normal ROM, trachea midline Chest: normal inspection Resp: normal work of breathing, LCTAB Cardio: Borderline tachycardic rate, normal rhythm GI: abdomen soft, non-tender, non-distended Back: Multiple crusted/excoriated lesions, no erythema or edema Skin: warm, dry, normal color, no rash Neuro: alert, not altered, grossly non-focal, normal tone Ext: 2+ lower extremity edema to the knees bilaterally, no posterior calf tenderness to palpation, no erythema, moving all extremities equally Psych: normal mood, normal affect, normal behavior Course Vital Signs Vital signs: Vital Signs Temperature 36.4 C L 04/11/21 10:19 Pulse 104 H 04/11/21 10:19 Respiratory Rate 20 04/11/21 10:19 Blood Pressure 79/50 L 04/11/21 10:19 Pulse Oximetry 98 04/11/21 10:19 Temperature 36.4 C L 04/11/21 10:19 Temperature Source Skin 04/11/21 10:19 Pulse 105 H 04/11/21 10:31 Pulse 104 H 04/11/21 10:32 Respiratory Rate 20 04/11/21 10:32 Blood Pressure 95/70 L 04/11/21 10:31 Blood Pressure Mean 76 04/11/21 10:31 Blood Pressure Position Sitting 04/11/21 10:19 Pulse Oximetry 85 L 04/11/21 10:32 Oxygen Delivery Method Room Air 04/11/21 10:19 Oxygen Flow Rate 0 04/11/21 10:19 Pain Level 2 04/11/21 10:19
[2021-04-11 10:45] LABS: Abs Immature Grans 0.01 10^3/uL (0.0-0.06); Absolute Basophil Count 0.04 10^3/uL (0.0-0.2); Absolute Eosinophil Count 0.01 10^3/uL (0.0-0.7); Absolute Lymphocyte Count 1.58 10^3/uL (1.2-3.4); Absolute Monocyte Count 0.45 10^3/uL (0.1-0.8); Absolute Neutrophil Count 3.57 10^3/uL (1.2-6.7); Basophils % 0.7; Eosinophils % 0.2; HCT 46.6 % (36.0-46.0); Immature Grans % 0.2; Lymphocytes % 27.9; MCH 31.5 pg (27.0-33.0); MCHC 34.3 % (32.0-36.0); MCV 91.7 fL (80-95); MPV 11.7 fL (8.0-11.0); Nucleated RBC 0 %; Platelet Count 132 10^3/uL (130-400); RBC 5.08 10^6/uL (3.93-5.22); RDW 15.7 % (11.7-14.6); RDW-SD 51.1 fL; WBC 5.66 10^3/uL (4.4-10.8)
[2021-04-11] MEDS: Furosemide 40 MG/4 ML VIAL IVP ×3 (10:45→20:58)
[2021-04-11 11:08] LABS: INR 2.4 (0.9-1.1); Prothrombin Time 23.8 sec (9.3-11.0)
[2021-04-11 11:12] LABS: Albumin 3.6 g/dL (3.4-5.0); Alkaline Phosphatase 125 U/L (46-116); BUN 22 mg/dL (7-18); Bilirubin, Total 3.1 mg/dL (0.2-1.0); CREATININE 1.5 mg/dL (0.55-1.02); Calcium 9.2 mg/dL (8.5-10.1); Chloride 91 mmol/L (98-107); Estimated GFR 34.74 (mL/min/1.73m2); Glucose 117 mg/dL (74-106); Sodium 131 mmol/L (136-145); Total Protein 6.8 g/dL (6.4-8.2)
[2021-04-11 11:13] LABS: ALT 78 U/L (14-59); AST 82 U/L (15-37); Magnesium 2.5 mg/dL (1.8-2.4); TSH (W/Ref FT4) 8.19 uIU/mL (0.36-3.74)
[2021-04-11 11:18] LABS: Troponin I 0.07 ng/mL (<0.06)
[2021-04-11 11:27] LABS: D-Dimer 1479 ng/mlFEU (<500)
[2021-04-11 11:36] LABS: FREE T4 1.18 ng/dL (0.76-1.46); NT-proBNP 24588 pg/mL (<300)
--- NOTE | 2021-04-11 12:30 | DI.US_ITS ---
APPROVED REPORT EXAM: Comprehensive 2D, Doppler, and color-flow Echocardiogram Patient Location: ER Laboratory Asst: Yasmin Greenberg RDCS ([facility]) Indications: Acute Chronic CHF Other Information Study Quality: Adequate Conclusion Left ventricle is severely dilated. Estimated ejection fraction is approximately 10% with global sev ere hypokinesis. No intracardiac thrombus is identified. Questionable trabeculation raises question of noncompaction The right ventricle is dilated and severely hypokinetic The left atrium is severely dilated. The right atrium is mildly dilated The aortic valve is trileaflet. Leaflets are mildly thickened. There is trace aortic regurgitation Mildly thickened mitral leaflets. There is moderate mitral regurgitation Normal tricuspid valve with moderate regurgitation. Estimated right ventricular systolic pressure is 34 mmHg Normal pulmonic valve with moderate regurgitation Wall motion Left Ventricle Left ventricle is severely dilated. Left ventricular systolic function is severely decreased. There i s normal left ventricular wall thickness. There is global hypokinesis of the left ventricle. There is no ventricular septal defect visualized. LVEF is 10%. Right Ventricle Right ventricle is moderately dilated. Right ventricle is moderately hypokinetic. The RVSP is 34.2 mm Hg. Atria Left atrium is severely dilated. Right atrium is mildly dilated. The interatrial septum is intact wit h no evidence for an atrial septal defect. Aortic Valve Aortic valve leaflets are mildly thickened. Aortic valve is trileaflet. There is no aortic valvular s tenosis. Trace aortic regurgitation. Mitral Valve Mitral valve leaflets are moderately thickened. No evidence of mitral valve stenosis. Moderate mitral regurgitation. Tricuspid Valve The tricuspid valve is normal in structure. There is no tricuspid valve stenosis. Moderate tricuspid regurgitation. Pulmonic Valve The pulmonary valve is normal in structure. There is no pulmonic valvular stenosis. moderate pulmonic regurgitation. Great Vessels The aortic root is normal in size. The ascending aorta is normal in size. Aortic arch is not well vis ualized. The IVC collapses <50% with inspiration. Pericardium There is no pericardial effusion. 2D Dimensions IVSD d PLAX 0.80 cm F: 0.6-1.0 LV Vol A2C d MOD 203.1 mL LVPW d PLAX 0.84 cm F: 0.6 - 1.0 LV Vol A4C d MOD 190.0 mL LVID d PLAX 8.13 cm F: 3.8 - 5.2 LA Area A4C s MOD 29.66 cm2 LVDs 7.80 cm F: 2.2 - 3.5 LA Area A2C s MOD 25.92 cm2 Ao Root d 2.59 cm F: 2.7 - 3.3 LV EF A4C MOD 10.1 % RA Area A4C 15.89 cm2 LV EF A2C MOD 11.1 % Ao Asc Diam d 2.96 cm F: 2.3 - 3.1 LV EF Biplane MOD 5.9 % LV EF Teichholz 7.9 % SV 11.84 mL LVEF (Price's) 5.87 % F: 54 - 74 LV Volume 201.76 mL F: 46 - 106 LV Volume Index 117.98 mL/m2 F: 29 - 61 LV Vol Biplane MOD 201.8 mL FS 3.60 % M-Mode TAPSE 1.19 cm (M/F) >1.7 LV Diastology MV E Vmax 0.98 (0.4-1.3 m/s) Aortic Valve LVOT Area 2.93 cm2 AoV Area Vmax 2.54 cm2 LVOT Vmax 0.57 m/s RAJINDER Mean Len. 1.86 cm2 LVOT Mean Len. 0.33 m/s LVOT Peak Grad 1.3 mmHg LVOT Mean Grad 0.5 mmHg LVOT VTI 0.068 m LVOT Diam s 1.90 cm AoV Vmax 0.65 m/s Velocity Ratio 0.87 AoV Mean Len. 0.51 m/s AoV Peak Grad 1.7 mmHg LVOT SV 19.82 mL AoV Mean Grad 1.1 mmHg AoV VTI 0.104 m AoV Area VTI 1.90 cm2 Mitral Valve MV DT 193 (160-240 msec) MR Vmax 4.08 m/s MV PHT 56 msec MR VTI 1.484 m MV Area PHT 3.92 cm2 MR Peak Grad 66.7 mmHg MV VTI 0.124 m MR Mean Grad 41.6 mmHg MV VTI Annulus 0.138 m MR PISA Radius 0.57 cm MV Area VTI 1.81 (4.0-6.0 cm2) MR EROA 0.17 cm2 MR Aliasing Velocity 0.35 m/s MR PISA 2.02 cm2 Pulmonary Valve PV Vmax 0.68 (0.5-1.5 m/s) RVOT Peak Gr. 0.86 mmHg PV Peak Grad 1.9 mmHg RVOT Mean Gr. 0.35 mmHg PV Mean Grad 1.2 mmHg RVOT VTI 0.053 m PV VTI 0.088 m RVOT Vmax 0.46 m/s Tricuspid Valve TR Peak Grad 26.2 mmHg TR Vmax 2.56 m/s RA Pressure 8.00 mmHg RVSP (TR) 34.2 mmHg
--- NOTE | 2021-04-11 13:15 | RT.EKG_ITS ---
APPROVED REPORT Exam: Resting ECG Reason for Exam: elevated troponin Patient Location: E HR:102 bpm ECG Measurements Heart Rate 102 AXIS AL 125 P 42 QRSd 184 QRS 125 QT 431 T -46 QTc 560 Conclusion Sinus tachycardia...rate> 99 Ventricular premature complex...V complex w/ short R-R interval Left bundle branch block...QRSd>120, broad/notched R ST elevation secondary to IVCD...Multiple VCG criteria findings similar to prior, non-diagnostic EKG I have reviewed and interpreted ECG and agree with software generated interpretation.
[2021-04-11 13:57] LABS: Troponin I 0.07 ng/mL (<0.06)
[2021-04-11 14:09] LABS: Source Nasal/Nares
[2021-04-11] MEDS: Normal Saline Flush 10 ML SYR IVP ×2 (14:46→20:59)
--- NOTE | 2021-04-11 16:04 | W.PM.HP.N ---
Date of service: 04/11/21 Time of Service: 16:04 Assessment and Plan Assessment and plan (1) Heart failure: Start date: 04/11/21 Start time: 16:52 Status: Acute Assessment and plan: Echo today revealing EF of 10 with dilated cardiomyopathy. She sees Dr. Parmar, sent to Ed by her. 3+ edema bilaterally to lower extremities. She has been accepted to [facility] for HF specialist by Dr. Bourgeois however no bed available at this time. Possible bed availability tomorrow. Telemetery at this time. Per Dr. Bourgeois placed on lasix TID. She stated she was unable to urinate however with the lasix she was able to urinate after receiving lasix grewal placed for i/o low sodium diet with fluid restriction Qualifiers: Heart failure type: systolic Heart failure chronicity: acute on chronic Qualified Code(s): I50.23 - Acute on chronic systolic (congestive) heart failure (2) Dilated cardiomyopathy: Start date: 04/11/21 Start time: 17:12 Status: Acute Assessment and plan: as above. (3) LV (left ventricular) mural thrombus: Start date: 04/11/21 Start time: 17:12 Status: Acute Assessment and plan: On eliquis (4) Chronic anticoagulation: Start date: 04/11/21 Start time: 17:13 Status: Acute Assessment and plan: for thrombus as above (5) Pruritus: Start date: 04/11/21 Start time: 17:13 Status: Acute Assessment and plan: with multiple open areas. Will order Benadryl and micaela compound for back (6) Hypotension: Start date: 04/11/21 Start time: 17:14 Status: Acute Assessment and plan: Patient runs low. Asymptomatic. Will give lasix unless SBP less than 80 Qualifiers: Hypotension type: other hypotension type Qualified Code(s): I95.89 - Other hypotension (7) Transaminitis: Start date: 04/11/21 Start time: 17:15 Status: Acute Assessment and plan: Hold statin at this time and tylenol Monitor labs (8) Hypothyroidism: Start date: 04/11/21 Start time: 17:16 Status: Chronic Assessment and plan: On levothyroxine, TSH elevated. Will incrase to [address] Harris History of Present Illness History of Present Illness Chief Complaint: Acute on chronic HF, cardiomyopathy dilated. Narrative: 65 y.o. female presents to ED after calling Dr. Parmar today due to severe swelling and inability to urinate. She currently has EF of 10% according to today with dilated right atrium. Systolic pressure is 34 She was seen by Dr. Parmar on 04/[address] Valdovinos felt she would benefit from seeing a heart failure specialist at [facility]. Labs in the ED reveal sodium 131, bili 3.1, AST 82, ALt 78, Alk Phos. trop, 0.07, bnp 24,5888, TSH was 8.19. She has been accepted by Dr. Bourgeois at [facility] for Heart failure specialty. They recommend IVP lasix. Hospitalist has been asked to admit patient until bed availability. On telemetry. Denies CP, SOB with excretion or lying down. Severe swelling to bilateral legs will obtain bilateral us as she is on eliquis for left ventricular thrombus. Review of Systems All systems reviewed & are unremarkable except as noted in HPI and below PFSH Active Problem List LV (left ventricular) mural thrombus (Acute) Chronic anticoagulation (Acute) Pruritus (Acute) Hypotension (Acute) Hepatitis (Acute) Dilated cardiomyopathy (Acute) Heart failure (Acute) Transaminitis (Acute) Hypothyroidism (Chronic) LBBB (left bundle branch block) (Acute) Medical History Alcohol abuse dc'd 02/23/21 Anxiety Chronic low back pain COPD (chronic obstructive pulmonary disease) Depression Episode of syncope History of cervical dysplasia (08/27/14) Hypercholesteremia Insomnia Polycythemia Pruritus of vulva (08/27/14) Tobacco use disorder 2020, DC 01/2021 Weight loss Surgical History EMERGENT OPHORECTOMY 2004; TORSION OF RIGHT OVARY Family History Mother , 86 Diabetes Essential hypertension Heart disease Hyperlipidemia Stroke Father , 79 Diabetes Alcohol abuse Essential hypertension Heart disease Stroke Sister , 44 Cerebral aneurysm Stroke Paternal Grandmother Uterine cancer Maternal Grandmother Stroke Son Diabetes Son No problems noted. Sister No problems noted. Sister No problems noted. Brother No problems noted. Brother No problems noted. Social History Smoking/Tobacco Use Status: Former Tobacco Use Quit status: considering quitting Second Hand Exposure: Yes Smoking risk assessment performed?: Yes Alcohol Intake: former Year quit: 2020 Drug use: Never Substance use type: does not use Counseling given: No Counseling provided: none Caregiver/Support person: No Household members: children Communication Needs: None Pets and animals: Yes Pets and animals: cat(s) and dog(s) Sexually active: No Do you think of yourself as: straight/heterosexual Current gender identity: female What is your relationship status?: never How often do you talk on the phone with friends or family?: twice per week How often do you get together with friends or relatives?: twice per week Do you belong to any clubs or organized social groups?: no Panel score (0-1 are the most socially isolated patients): 1 What type of physical activity do you participate in: walking Duration: 15-30 minutes/day Frequency: 3-4 times per week Deyanira/[employer]: [employer] Special deyanira needs: No Seatbelt use: always Drive intox or ride w/intox auto driver: No Do you feel safe at home: Yes Do you feel safe in your relationship?: Yes Meds Allergies and Home Medications Allergies Allergy/AdvReac Type Severity Reaction Status Date / Time No Known Allergies Allergy Verified 04/11/21 10:58 Home Medications Medication Instructions Recorded Confirmed Type multivitamin 1 tab PO DAILY PRN tab 05/29/18 04/11/21 History levothyroxine 75 mcg tablet 75 mcg PO DAILY #90 tab 09/29/20 04/11/21 Rx atorvastatin 20 mg tablet 20 mg PO DAILY #90 tab 11/23/20 04/11/21 Rx tiotropium bromide 1.25 2 puff INHALATION DAILY #4 g 11/23/20 04/11/21 Rx mcg/actuation mist for inhalation albuterol sulfate 90 mcg/actuation 2 puff INHALATION QID PRN #8.5 g 02/28/21 04/11/21 Rx aerosol inhaler triamcinolone acetonide 0.1 % 1 applic TOPICAL BID #80 g 03/14/21 04/11/21 Rx topical ointment spironolactone 25 mg tablet 12.5 mg PO DAILY #30 tab 03/24/21 04/11/21 Rx apixaban 5 mg tablet 5 mg PO BID #60 tab 03/25/21 04/11/21 Rx famotidine 20 mg tablet 20 mg PO .evening #90 tab 04/01/21 04/11/21 Rx omeprazole 20 mg capsule,delayed 20 mg PO DAILY #90 cap 04/01/21 04/11/21 Rx release omeprazole magnesium 20 mg 20 mg PO DAILY 04/01/21 04/11/21 History tablet,delayed release torsemide 20 mg tablet 20 mg PO BID #60 tab 04/07/21 04/11/21 Rx Exam Const General: cooperative, frail appearing and ill appearing chronically Nutritional Appearance: thin Orientation: alert, awake and oriented x3 HENMT Head: normal to inspection, normocephalic and atraumatic Eyes Pupils: PERRL EOM: EOM intact bilaterally Neck Neck: full ROM Chest Chest: normal inspection of the chest Resp Effort & Inspection: normal respiratory effort and able to speak in complete sentences Auscultation: clear to auscultation bilaterally Cardio Jugular venous pressure: JVD Rate: tachycardic GI Palpation: soft Auscultation: normal bowel sounds Skin Lesions: lesion noted (open areas from scratchin with small scabs to back legs and multiple areas ) Rashes: rashes noted Neuro General: patient alert, patient awake and patient oriented x3 Cognition: normal cognition Speech: speech normal Extrem General: normal to inspection and full ROM Psych Appearance: grossly normal Mental Status: mental status grossly normal Speech and Movement: speech and movement normal Mood: congruent mood Affect: normal affect Attitude: cooperative Thought Process: normal Thought Content: normal Results Labs Result diagrams: 04/11/21 10:35 04/11/21 10:35 Labs: Laboratory Results - last 24 hr 04/11/21 04/11/21 04/11/21 10:35 10:35 10:35 WBC 5.66 RBC 5.08 Hgb 16.0 H Hct 46.6 H MCV 91.7 MCH 31.5 MCHC 34.3 RDW 15.7 H Plt Count 132 MPV 11.7 H Immature Gran % 0.2 Neutrophils % 63.0 Lymphocytes % 27.9 Monocytes % 8.0 Eosinophils % 0.2 Basophils % 0.7 Nucleated RBC % 0 Absolute Neutrophils 3.57 Absolute Lymphocytes 1.58 Absolute Monocytes 0.45 Absolute Eosinophils 0.01 Absolute Basophils 0.04 PT 23.8 H INR 2.4 H D-Dimer 1479 H Sodium 131 L Potassium 4.0 Chloride 91 L Carbon Dioxide 30.0 Anion Gap 10.0 BUN 22 H Creatinine 1.5 H Estimated GFR/1.73 m2 34.74 Glucose 117 H Calcium 9.2 Magnesium 2.5 H Total Bilirubin 3.1 H AST 82 H ALT 78 H Alkaline Phosphatase 125 H Troponin I 0.07 H NT-Pro-B Natriuret Pep 59595 H Total Protein 6.8 Albumin 3.6 TSH 8.19 H Free T4 1.18 COVID-19 Source 04/11/21 04/11/21 13:30 14:04 WBC RBC Hgb Hct MCV MCH MCHC RDW Plt Count MPV Immature Gran % Neutrophils % Lymphocytes % Monocytes % Eosinophils % Basophils % Nucleated RBC % Absolute Neutrophils Absolute Lymphocytes Absolute Monocytes Absolute Eosinophils Absolute Basophils PT INR D-Dimer Sodium Potassium Chloride Carbon Dioxide Anion Gap BUN Creatinine Estimated GFR/1.73 m2 Glucose Calcium Magnesium Total Bilirubin AST ALT Alkaline Phosphatase Troponin I 0.07 H NT-Pro-B Natriuret Pep Total Protein Albumin TSH Free T4 COVID-19 Source Nasal/Nares Last Vital Signs Temp 36.8 C 04/11/21 14:19 Pulse 94 H 04/11/21 14:40 Resp 16 04/11/21 14:19 BP 96/64 L 04/11/21 14:19 Pulse Ox 95 04/11/21 14:19
--- NOTE | 2021-04-11 16:15 | RT.EKG_ITS ---
APPROVED REPORT Exam: Resting ECG Reason for Exam: telemetry variation Patient Location: I HR:90 bpm ECG Measurements Heart Rate 90 AXIS WY 162 P 89 QRSd 186 QRS -65 QT 474 T 102 QTc 582 Conclusion Sinus rhythm...normal P axis, V-rate 60- 99 Ventricular premature complex...V complex w/ short R-R interval Left atrial enlargement...P, P'>60mS, <-0.15mV V1 Left bundle branch block...QRSd>120, broad/notched R ST elevation secondary to IVCD...Multiple VCG criteria
--- NOTE | 2021-04-11 16:32 | DI.VRAD_ITS ---
PROCEDURE INFORMATION: Exam: US Duplex Lower Extremity Veins, Bilateral Exam date and time: 04/11/2021 3:18 PM Age: 65 years old Clinical indication: Swelling (edema) of limb; Lower extremity, bilateral TECHNIQUE: Imaging protocol: Real-time duplex ultrasound of the extremities with 2-D vaughan scale, color Doppler flow and spectral waveform analysis with image documentation. Complete exam focused on the bilateral lower extremity veins. COMPARISON: No relevant prior studies available. FINDINGS: Right deep veins: Unremarkable. The common femoral, femoral, proximal profunda femoral and popliteal veins are patent without thrombus. Normal Doppler waveforms. Normal compressibility and/or augmentation response. Right superficial veins: Saphenofemoral junction is patent without thrombus. Left deep veins: Unremarkable. The common femoral, femoral, proximal profunda femoral and popliteal veins are patent without thrombus. Normal Doppler waveforms. Normal compressibility and/or augmentation response. Left superficial veins: Saphenofemoral junction is patent without thrombus. Soft tissues: Mild bilateral subcutaneous edema. IMPRESSION: No evidence of deep vein thrombosis. Dictated and Authenticated by: Brittney Zurita MD. Ordering:SERG Huerta MD
[2021-04-11 17:24] LABS: Troponin I 0.06 ng/mL (<0.06)
[2021-04-11] MEDS: Triamcinolone 0.1% OINT 15 GM TUBE TP (20:58)
[2021-04-11] MEDS: Famotidine 20 MG TAB PO (20:58)
[2021-04-11] MEDS: Apixaban 5 MG TAB PO (20:59)
[2021-04-11] MEDS: diphenhydrAMINE 25 MG CAP 50 MG PO (22:24)
[2021-04-12] MEDS: Levothyroxine 88 MCG TAB PO (05:42)
[2021-04-12 07:01] VITALS: PULSE 102
[2021-04-12 07:31] VITALS: BP 91/63; PULSE 99; RESP 18; TEMP 36.3; O2SAT 97
[2021-04-12 07:56] VITALS: PULSE 111
[2021-04-12 09:14] LABS: BUN 22 mg/dL (7-18); CREATININE 1.5 mg/dL (0.55-1.02); Calcium 9.5 mg/dL (8.5-10.1); Estimated GFR 34.74 (mL/min/1.73m2); Glucose 120 mg/dL (74-106); Potassium 3.9 mmol/L (3.5-5.1); Sodium 133 mmol/L (136-145)
[2021-04-12 09:15] LABS: Chloride 92 mmol/L (98-107)
[2021-04-12 09:40] LABS: COVID-19 PCR Negative (Negative)
--- NOTE | 2021-04-12 10:24 | DSE_ITS ---
Date of service: 04/12/21 Time of Service: 10:24 DS: Diagnosis Discharge Diagnosis (1) Heart failure: Start date: 04/12/21 Start time: 10:24 Status: Acute Asessment and Plan: Accepted by [facility] Dr. Bourgeois for HF specialty Echo revealed EF of 10% with dialated cardiomyopathy She was receiving lasix IVP 40 mg TID Bed became available overnight and she was transferred. Bilateral u/s to r/o DVT d/t calf pain, negative in both legs (2) Dilated cardiomyopathy: Start date: 04/12/21 Start time: 10:30 Status: Acute Asessment and Plan: as above (3) LV (left ventricular) mural thrombus: Start date: 04/12/21 Start time: 10:30 Status: Acute Asessment and Plan: On eliquis (4) Chronic anticoagulation: Start date: 04/12/21 Start time: 10:31 Status: Acute Asessment and Plan: as above (5) Pruritus: Start date: 04/12/21 Start time: 10:31 Status: Acute Asessment and Plan: with multiple open areas, ordered Benadryl and micaela compound for back (6) Hypotension: Start date: 04/12/21 Start time: 10:32 Status: Acute Asessment and Plan: Patient runs low. Asymptomatic. Will give lasix unless SBP less than 80 (7) Transaminitis: Start date: 04/12/21 Start time: 10:32 Status: Acute Asessment and Plan: statin and tylenol held (8) Hypothyroidism: Start date: 04/12/21 Start time: 10:33 Status: Chronic Asessment and Plan: TSH was elevated increased levothyroxine to 88 mcg Discharge Plan Disposition Patient Disposition: [facility] Condition: Stable Discharge Details Reason For Visit: acute chronic heart failure dilated cardiomyopathy Admit Date/Time: 04/11/21 13:14 Admit Provider: Sukumar Harris Attending Provider: Sukumar Harris Primary Care Provider: Sunday Galvez Hospital Course Hospital Course: 65 y.o. female presented to ED after calling Dr. Parmar due to severe swelling and inability to urinate. Echo done on admission revealed EF of 10% with dilated right atrium. Systolic pressure is 34 She was seen by Dr. Parmar on 04/[address] Parmar felt she would benefit from seeing a heart failure specialist at [facility]. Labs in the ED reveal sodium 131, bili 3.1, AST 82, ALt 78, Alk Phos. trop, 0.07, bnp 24,5888, TSH was 8.19. She was accepted by Dr. Bourgeois at [facility] for Heart failure specialty. They recommend IVP lasix. Hospitalist was asked to admit patient until bed availability. On telemetry. She denied CP, SOB with excretion or lying down. Severe swelling to bilateral legs. Bed became available overnight and she was transferred to [facility]. Home Meds and New Rx's Prescriptions: No Action Spiriva Respimat 1.25 mcg/actuation mist 2 puff inhalation DAILY Qty: 4 RF: 5 atorvastatin 20 mg tablet 20 mg PO DAILY Qty: 90 RF: 6 multivitamin tablet 1 tab PO DAILY PRN RF: 0 triamcinolone acetonide 0.1 % ointment 1 applic topical BID Qty: 80 RF: 0 spironolactone 25 mg tablet 12.5 mg PO DAILY Qty: 30 RF: 8 omeprazole magnesium [Prilosec OTC] 20 mg tablet,delayed release (DR/EC) 20 mg PO DAILY RF: 0 omeprazole 20 mg capsule,delayed release(DR/EC) 20 mg PO DAILY Qty: 90 RF: 3 famotidine 20 mg tablet 20 mg PO .evening Qty: 90 RF: 3 Eliquis 5 mg tablet 5 mg PO BID Qty: 60 RF: 1 torsemide 20 mg tablet 20 mg PO BID Qty: 60 RF: 8 levothyroxine 75 mcg tablet 75 mcg PO DAILY Qty: 90 RF: 3 albuterol sulfate [Ventolin HFA] 90 mcg/actuation HFA aerosol inhaler 2 puff inhalation QID PRN (Reason: shortness of breath or wheezing) Qty: 8.5 RF: 3 Discharge Instructions Additional Instructions: Transfer to [facility] Activity:: Ambulate with assist Diet:: Low Sodium, fluid restriction 1200 ml\day Discharge Orders Discharge Orders: Discharge Order (Routine); Ordered 04/12/21 Ordered By: Deanna Harrison DS: Summary Time Spent with Patient providing and/or coordinating discharge services: Less than 30 minutes Status at Discharge Functional status at discharge: independent ambulation Overall status at discharge: patient is not back to baseline Mental Status: mental status grossly normal Speech and Movement: speech and movement normal Mood: congruent mood Affect: normal affect Exam Const General: cooperative, frail appearing and ill appearing chronically Nutritional Appearance: thin Orientation: alert, awake and oriented x3 HENMT Head: normal to inspection, normocephalic and atraumatic Eyes Pupils: PERRL EOM: EOM intact bilaterally Neck Neck: full ROM Chest Chest: normal inspection of the chest Resp Effort & Inspection: normal respiratory effort and able to speak in complete sentences Auscultation: clear to auscultation bilaterally Cardio Jugular venous pressure: JVD Rate: tachycardic GI Palpation: soft Auscultation: normal bowel sounds Skin Lesions: lesion noted (open areas from scratchin with small scabs to back legs a nd multiple areas ) Rashes: rashes noted Neuro General: patient alert, patient awake and patient oriented x3 Cognition: normal cognition Speech: speech normal Extrem General: normal to inspection and full ROM Psych Appearance: grossly normal Mental Status: mental status grossly normal Speech and Movement: speech and movement normal Mood: congruent mood Affect: normal affect Attitude: cooperative Thought Process: normal Thought Content: normal DS: Data Vitals/I&O Vitals and I&O: Vital Signs Temperature 36.3 C L 04/12/21 07:31 Temperature Source Tympanic 04/12/21 07:31 Pulse 99 H 04/12/21 07:31 Pulse Rhythm Irregular 04/12/21 07:30 Pulse 107 H 04/11/21 13:50 Respiratory Rate 18 04/12/21 07:31 Respiratory Effort Non-Labored 04/12/21 07:30 Respiratory Depth Normal 04/12/21 07:30 Respiratory Pattern Normal 04/12/21 07:30 Blood Pressure 91/63 L 04/12/21 07:31 Blood Pressure Mean 75 04/11/21 13:45 Blood Pressure Position Sitting 04/11/21 10:19 Pulse Oximetry 97 04/12/21 07:31 Oxygen Delivery Method Room Air 04/12/21 07:31 Oxygen Flow Rate 0 04/12/21 07:31 Pain Level 0 04/12/21 07:31 Comment 04/11/21 20:10 Intake & Output 04/11/21 04/11/21 04/12/21 11:59 23:59 11:59 Intake Total 10 / 250 240 / 250 Output Total 450 / 450 Balance 10 / -200 -210 / -200 Weight 61.5 kg 51.1 kg Intake: IV 10 / 10 Oral 240 / 240 Output: Urine 450 / 450 Other: Urine Color Pale Urine Appearance Clear Cloudy Hematuria Data Completed and Pending Completed studies during hospitalization [Text1]: Exam(s) US EXTREMITY VENOUS BI EXAM: US EXTREMITY VENOUS BI CLINICAL HISTORY: calf pain TECHNIQUE: Grayscale, color, and doppler imaging of the deep venous system of both lower extremities was performed. COMPARISON: None FINDINGS: There is no evidence of intraluminal thrombus and there is normal compression and augmentation demonstrated within the common femoral veins, femoral veins, and popliteal veins of both lower extremities. In the calves the interrogated veins also exhibit normal compression/ augmentation properties. The greater saphenous veins also appear patent as do the saphenofemoral junctions bilaterally.. IMPRESSION: 1. No ultrasound evidence of DVT in either lower extremity. Exam(s) XR PORTABLE CHEST AP EXAM: XR PORTABLE CHEST AP CLINICAL HISTORY: orthopnea, h/o CHF. TECHNIQUE: 2D digital imaging was performed. COMPARISON: No exams were available for comparison FINDINGS: Cardiomegaly again noted. The mediastinum is not widened. There are no infiltrates nor obvious pleural effusions evident on this single view which does not include the lower most aspect of the costophrenic angles. There is no pulmonary edema. No pneumothorax IMPRESSION: Cardiomegaly again noted.No acute pulmonary findings. Conclusion Left ventricle is severely dilated. Estimated ejection fraction is approximately 10% with global severe hypokinesis. No intracardiac thrombus is identified. Questionable trabeculation raises question of noncompaction The right ventricle is dilated and severely hypokinetic The left atrium is severely dilated. The right atrium is mildly dilated The aortic valve is trileaflet. Leaflets are mildly thickened. There is trace aortic regurgitation Mildly thickened mitral leaflets. There is moderate mitral regurgitation Normal tricuspid valve with moderate regurgitation. Estimated right ventricular systolic pressure is 34 mmHg Normal pulmonic valve with moderate regurgitation Labs on day of discharge: Labs from last 24 hours 04/12/21 04/11/21 04/11/21 06:49 17:00 14:04 WBC RBC Hgb Hct MCV MCH MCHC RDW Plt Count MPV Immature Gran % Neutrophils % Lymphocytes % Monocytes % Eosinophils % Basophils % Nucleated RBC % Absolute Neutrophils Absolute Lymphocytes Absolute Monocytes Absolute Eosinophils Absolute Basophils PT INR D-Dimer Sodium 133 L Potassium 3.9 Chloride 92 L Carbon Dioxide 33.0 H Anion Gap 8.0 BUN 22 H Creatinine 1.5 H Estimated GFR/1.73 m2 34.74 Glucose 120 H Calcium 9.5 Magnesium Total Bilirubin AST ALT Alkaline Phosphatase Troponin I 0.06 NT-Pro-B Natriuret Pep Total Protein Albumin TSH Free T4 COVID-19 Source Nasal/Nares SARS-CoV-2 (PCR) Negative 04/11/21 04/11/21 04/11/21 13:30 10:35 10:35 WBC 5.66 RBC 5.08 Hgb 16.0 H Hct 46.6 H MCV 91.7 MCH 31.5 MCHC 34.3 RDW 15.7 H Plt Count 132 MPV 11.7 H Immature Gran % 0.2 Neutrophils % 63.0 Lymphocytes % 27.9 Monocytes % 8.0 Eosinophils % 0.2 Basophils % 0.7 Nucleated RBC % 0 Absolute Neutrophils 3.57 Absolute Lymphocytes 1.58 Absolute Monocytes 0.45 Absolute Eosinophils 0.01 Absolute Basophils 0.04 PT 23.8 H INR 2.4 H D-Dimer 1479 H Sodium Potassium Chloride Carbon Dioxide Anion Gap BUN Creatinine Estimated GFR/1.73 m2 Glucose Calcium Magnesium Total Bilirubin AST ALT Alkaline Phosphatase Troponin I 0.07 H NT-Pro-B Natriuret Pep Total Protein Albumin TSH Free T4 COVID-19 Source SARS-CoV-2 (PCR) 04/11/21 10:35 WBC RBC Hgb Hct MCV MCH MCHC RDW Plt Count MPV Immature Gran % Neutrophils % Lymphocytes % Monocytes % Eosinophils % Basophils % Nucleated RBC % Absolute Neutrophils Absolute Lymphocytes Absolute Monocytes Absolute Eosinophils Absolute Basophils PT INR D-Dimer Sodium 131 L Potassium 4.0 Chloride 91 L Carbon Dioxide 30.0 Anion Gap 10.0 BUN 22 H Creatinine 1.5 H Estimated GFR/1.73 m2 34.74 Glucose 117 H Calcium 9.2 Magnesium 2.5 H Total Bilirubin 3.1 H AST 82 H ALT 78 H Alkaline Phosphatase 125 H Troponin I 0.07 H NT-Pro-B Natriuret Pep 46782 H Total Protein 6.8 Albumin 3.6 TSH 8.19 H Free T4 1.18 COVID-19 Source SARS-CoV-2 (PCR) [facility] Active Problem List LV (left ventricular) mural thrombus (Acute) Chronic anticoagulation (Acute) Pruritus (Acute) Hypotension (Acute) Hepatitis (Acute) Dilated cardiomyopathy (Acute) Heart failure (Acute) Transaminitis (Acute) Hypothyroidism (Chronic) LBBB (left bundle branch block) (Acute) Medical History Alcohol abuse dc'd 02/23/21 Anxiety Chronic low back pain COPD (chronic obstructive pulmonary disease) Depression Episode of syncope History of cervical dysplasia (08/27/14) Hypercholesteremia Insomnia Polycythemia Pruritus of vulva (08/27/14) Tobacco use disorder 2020, [place] 01/2021 Weight loss Surgical History EMERGENT OPHORECTOMY 2004; TORSION OF RIGHT OVARY Family History Mother , 86 Diabetes Essential hypertension Heart disease Hyperlipidemia Stroke Father , 79 Diabetes Alcohol abuse Essential hypertension Heart disease Stroke Sister , 44 Cerebral aneurysm Stroke Paternal Grandmother Uterine cancer Maternal Grandmother Stroke Son Diabetes Son No problems noted. Sister No problems noted. Sister No problems noted. Brother No problems noted. Brother No problems noted. Social History Smoking/Tobacco Use Status: Former Tobacco Use Quit status: considering quitting Second Hand Exposure: Yes Smoking risk assessment performed?: Yes Alcohol Intake: former Year quit: 2020 Drug use: Never Substance use type: does not use Counseling given: No Counseling provided: none Caregiver/Support person: No Household members: children Communication Needs: None Pets and animals: Yes Pets and animals: cat(s) and dog(s) Sexually active: No Do you think of yourself as: straight/heterosexual Current gender identity: female What is your relationship status?: never How often do you talk on the phone with friends or family?: twice per week How often do you get together with friends or relatives?: twice per week Do you belong to any clubs or organized social groups?: no Panel score (0-1 are the most socially isolated patients): 1 What type of physical activity do you participate in: walking Duration: 15-30 minutes/day Frequency: 3-4 times per week Deyanira/Ad[employer]ism: Religious Special deyanira needs: No Seatbelt use: always Drive intox or ride w/intox food mobile driver: No Do you feel safe at home: Yes Do you feel safe in your relationship?: Yes
== END 2021-04-12 07:58 | disposition short-term general hospital (02) | DRG 292 ==
LOC: ER 14:13 → MS 14:17
PROVIDERS: Nurse Practitioner Family; Admitting Provider Internal Medicine; Emergency Provider Student in an Organized Health Care Education/Training Program; PCP Family Medicine; Visit Provider Internal Medicine
DX: I50.23 Acute on chronic systolic (congestive) heart failure (principal); I42.0 Dilated cardiomyopathy; Z68.1 Body mass index [BMI] 19.9 or less, adult; Z79.01 Long term (current) use of anticoagulants; I95.89 Other hypotension; R74.01 Elevation of levels of liver transaminase levels; I44.7 Left bundle-branch block, unspecified; F10.11 Alcohol abuse, in remission; E78.00 Pure hypercholesterolemia, unspecified; G47.00 Insomnia, unspecified; D75.1 Secondary polycythemia; J44.9 Chronic obstructive pulmonary disease, unspecified; F41.9 Anxiety disorder, unspecified; Z87.891 Personal history of nicotine dependence; R63.4 Abnormal weight loss; G89.29 Other chronic pain; M54.50 Low back pain, unspecified; F32.A Depression, unspecified; Z20.822 Contact with and (suspected) exposure to COVID-19; L29.2 Pruritus vulvae
CPT/HCPCS: 36415; 80048; 80053; 87635; 93005; 96374; 99285; 71045; 83735; 83880; 84439; 84443; 84484; 85025; 85379; 85610; 93010; 93306; 93970; 99223; 99238; J1940

== ENCOUNTER 2021-04-22 02:54 | Outpatient (CLI) | payer BC, SELFPAY ==
[2021-04-22 11:20] LABS: Prothrombin Time 12.5 sec (9.3-11.0)
[2021-04-22 11:23] LABS: INR 1.2 (0.9-1.1)
[2021-04-22 12:23] LABS: Anion Gap 5.6 mmol/L (3-11); BUN 15 mg/dL (7-18); CO2 30.4 mmol/L (21.0-32.0); CREATININE 0.8 mg/dL (0.55-1.02); Chloride 96 mmol/L (98-107); Glucose 77 mg/dL (74-106); Potassium 4.9 mmol/L (3.5-5.1); Sodium 132 mmol/L (136-145)
== END 2021-04-22 02:55 | disposition home or self-care (01) ==
LOC: LBO 02:54
PROVIDERS: PCP Family Medicine; Visit Provider Family Medicine
DX: I42.0 Dilated cardiomyopathy (principal); Z79.01 Long term (current) use of anticoagulants
CPT/HCPCS: 36415; 80048; 85610

== ENCOUNTER 2021-06-06 03:40 | Outpatient (CLI) | payer BC, SELFPAY ==
[2021-06-06 08:51] LABS: Anion Gap 5.8 mmol/L (3-11); CO2 29.2 mmol/L (21.0-32.0); Chloride 104 mmol/L (98-107); Potassium 5.1 mmol/L (3.5-5.1); Sodium 139 mmol/L (136-145)
[2021-06-06 08:58] LABS: ALT 30 U/L (14-59); AST 31 U/L (15-37); Albumin 3.6 g/dL (3.4-5.0); Alkaline Phosphatase 94 U/L (46-116); Bilirubin, Direct 0.3 mg/dL (0.0-0.2); Bilirubin, Total 0.9 mg/dL (0.2-1.0); Total Protein 6.8 g/dL (6.4-8.2)
== END 2021-06-06 03:41 | disposition home or self-care (01) ==
LOC: LBO 03:41
PROVIDERS: PCP Family Medicine; Visit Provider Family Medicine
DX: G72.89 Other specified myopathies (principal); E87.1 Hypo-osmolality and hyponatremia
CPT/HCPCS: 36415; 80051; 80076

== ENCOUNTER 2021-09-26 13:31 | Outpatient (REF) | payer BC, SELFPAY ==
[2021-09-27 12:45] LABS: COVID-19 RT-PCR UVMMC Result Negative (Negative)
== END 2021-09-26 13:32 | disposition home or self-care (01) ==
LOC: LBN 13:31
PROVIDERS: PCP Family Medicine; Visit Provider Family Medicine
DX: Z20.822 Contact with and (suspected) exposure to COVID-19 (principal); Z01.812 Encounter for preprocedural laboratory examination
CPT/HCPCS: U0003

== ENCOUNTER 2022-01-15 18:32 | Emergency (ER) | payer BC, SELFPAY ==
[2022-01-15 18:39] VITALS: BP 111/70; PULSE 100; RESP 18; TEMP 36.7; O2SAT 99
--- NOTE | 2022-01-15 20:12 | W.ED.GENAD ---
Discharge Plan Disposition Patient Disposition: HOME Condition: Good Discharge Details Clinical Impression: Dental infection Primary Care Provider: Sunday Galvez ED Provider: Dameon Perez Home Meds and New Rx's Prescriptions: New amoxicillin-pot clavulanate 875-125 mg tablet 1 tab PO BID 6 Days Qty: 12 0RF No Action alum-mag hydroxide-simeth 200-200-20 mg/5 mL suspension 10 ml PO QID PRN Rx Instructions: administer between meals and at bedtime multivitamin tablet 1 tab PO DAILY PRN metoprolol succinate 25 mg tablet extended release 24 hr 25 mg PO DAILY Qty: 90 3RF triamcinolone acetonide 0.1 % cream 1 applic topical BID PRN (Reason: rash) Qty: 80 0RF Spiriva Respimat 1.25 mcg/actuation mist 2 puff inhalation DAILY Qty: 4 5RF Entresto 24-26 mg tablet See Rx Instructions PO ONCE Qty: 90 3RF Rx Instructions: 1/2 PO BID torsemide 20 mg tablet 20 mg PO DAILY albuterol sulfate [Ventolin HFA] 90 mcg/actuation HFA aerosol inhaler 2 puff inhalation QID PRN (Reason: shortness of breath or wheezing) Qty: 8.5 3RF atorvastatin 20 mg tablet 20 mg PO DAILY Qty: 90 6RF levothyroxine 75 mcg tablet 75 mcg PO DAILY Qty: 90 3RF spironolactone 25 mg tablet 12.5 mg PO DAILY Qty: 45 3RF Eliquis 5 mg tablet 5 mg PO BID Qty: 180 3RF Jardiance 10 mg tablet 10 mg PO DAILY Qty: 90 3RF famotidine 20 mg tablet 20 mg PO .evening Qty: 90 3RF omeprazole magnesium [Prilosec OTC] 20 mg tablet,delayed release (DR/EC) 20 mg PO DAILY Qty: 90 3RF Discharge Instructions Instructions: Dental Abscess (ED) Additional Instructions: At this time you have a dental infection. Some of the pus was able to be removed. Please take the antibiotic as directed. The prescription has been sent to your pharmacy. Please take Tylenol as needed for pain. You can take a maximum of 1000 mg every 6 hours. Please follow-up closely with your dentist. If you notice any worsening of your symptoms, or any new symptoms such as difficulty swallowing drinking or breathing, vomiting, diarrhea, fever, chills, shortness of breath, chest pain, numbness, weakness, or fainting , please return immediately to the emergency department for reevaluation. Please follow up with your primary care provider as soon as possible for reassessment and reevaluation. As always, it was a pleasure participating in your medical care today. Referrals: Sunday Galvez MD [Primary Care Provider] - Medical Decision Making This is a pleasant 66-year-old female with a past medical history of an ICD, apixaban use, COPD, dilated cardiomyopathy, who presents today for evaluation of dental pain. Patient states that for the last 2 to 3 days she has had pain in the right lower dental area. She has not yet been able to connect with the dentist. She denies any fever chills difficulty swallowing or breathing. No other complaints at this time. No other modifying factors. Symptoms only minimally improved with NSAIDs. Exam demonstrates a small area of swelling beneath the canine on the right lower jaw. No fluctuance. Dental block was performed with excellent analgesia. 25-gauge needle was used to aspirate the swollen area for concern for abscess. Small amount of pus from serosanguineous fluid was removed with about 1 cc total. The patient had some improvement. Bleeding was stopped with gauze. The patient will be given Augmentin for home. Recommend close follow-up with dentist. Discussed red flags which to return. I have extensively reviewed the treatment plan and discharge instructions with the patient. I have addressed all patient concerns at this time. The patient was made aware of what symptoms to monitor for that would warrant a return to the emergency department. Discussed the plan with the patient, they demonstrate verbal understanding and agreement with our assessment and plan at this time. The documentation in this chart was dictated using [email or web address] dictation software. Please excuse any dictation errors. HPI General Date/Time Provider Initiated Documentation: 01/15/22 18:42. HPI Narrative: This is a pleasant 66-year-old female with a past medical history of an ICD, apixaban use, COPD, dilated cardiomyopathy, who presents today for evaluation of dental pain. Patient states that for the last 2 to 3 days she has had pain in the right lower dental area. She has not yet been able to connect with the dentist. She denies any fever chills difficulty swallowing or breathing. No other complaints at this time. No other modifying factors. Symptoms only minimally improved with NSAIDs. Related Data Home Medications Medication Instructions Recorded Confirmed multivitamin 1 tab PO DAILY PRN 05/29/18 01/15/22 aluminum-mag hydroxide-simethicone 10 ml PO QID PRN 05/13/21 01/15/22 200 mg-200 mg-20 mg/5 mL oral susp albuterol sulfate 90 mcg/actuation 2 puff inhalation QID PRN 06/15/21 01/15/22 aerosol inhaler (Ventolin HFA) shortness of breath or wheezing #8.5 grams atorvastatin 20 mg tablet 20 mg PO DAILY #90 tabs 06/15/21 01/15/22 levothyroxine 75 mcg tablet 75 mcg PO DAILY #90 tabs 06/15/21 01/15/22 triamcinolone acetonide 0.1 % 1 applic topical BID PRN rash #80 06/22/21 01/15/22 topical cream grams sacubitril 24 mg-valsartan 26 mg See Rx Instructions PO ONCE #90 07/25/21 01/15/22 tablet (Entresto) tabs spironolactone 25 mg tablet 12.5 mg PO DAILY #45 tabs 08/09/21 01/15/22 tiotropium bromide 1.25 2 puff inhalation DAILY #4 grams 08/19/21 01/15/22 mcg/actuation mist for inhalation (Spiriva Respimat) apixaban 5 mg tablet (Eliquis) 5 mg PO BID #180 tabs 09/19/21 01/15/22 empagliflozin 10 mg tablet 10 mg PO DAILY #90 tabs 10/04/21 01/15/22 (Jardiance) famotidine 20 mg tablet 20 mg PO .evening #90 tabs 10/04/21 01/15/22 omeprazole magnesium 20 mg 20 mg PO DAILY #90 tabs 10/10/21 01/15/22 tablet,delayed release (Prilosec OTC) torsemide 20 mg tablet 20 mg PO DAILY 11/18/21 01/15/22 metoprolol succinate 25 mg 25 mg PO DAILY #90 tabs 11/24/21 01/15/22 tablet,extended release 24 hr amoxicillin 875 mg-potassium 1 tab PO BID 6 days #12 tabs 01/15/22 clavulanate 125 mg tablet Previous Rx's Medication Instructions Recorded albuterol sulfate 90 mcg/actuation 2 puff inhalation QID PRN 06/15/21 aerosol inhaler (Ventolin HFA) shortness of breath or wheezing #8.5 grams atorvastatin 20 mg tablet 20 mg PO DAILY #90 tabs 06/15/21 levothyroxine 75 mcg tablet 75 mcg PO DAILY #90 tabs 06/15/21 triamcinolone acetonide 0.1 % 1 applic topical BID PRN rash #80 06/22/21 topical cream grams sacubitril 24 mg-valsartan 26 mg See Rx Instructions PO ONCE #90 07/25/21 tablet (Entresto) tabs spironolactone 25 mg tablet 12.5 mg PO DAILY #45 tabs 08/09/21 tiotropium bromide 1.25 2 puff inhalation DAILY #4 grams 08/19/21 mcg/actuation mist for inhalation (Spiriva Respimat) apixaban 5 mg tablet (Eliquis) 5 mg PO BID #180 tabs 09/19/21 empagliflozin 10 mg tablet 10 mg PO DAILY #90 tabs 10/04/21 (Jardiance) famotidine 20 mg tablet 20 mg PO .evening #90 tabs 10/04/21 omeprazole magnesium 20 mg 20 mg PO DAILY #90 tabs 10/10/21 tablet,delayed release (Prilosec OTC) metoprolol succinate 25 mg 25 mg PO DAILY #90 tabs 11/24/21 tablet,extended release 24 hr amoxicillin 875 mg-potassium 1 tab PO BID 6 days #12 tabs 01/15/22 clavulanate 125 mg tablet Allergies Allergy/AdvReac Type Severity Reaction Status Date / Time No Known Allergies Allergy Verified 11/24/21 09:25 General Stated Complaint: DentalOral DENIA: 4 Review of Systems All systems reviewed & are unremarkable except as noted in HPI and below PFSH All Active Problems Dental infection (Acute) ICD (implantable cardioverter-defibrillator) in place (Acute) 09/29/21 [employer] for [employer] RH Cough (Acute) senior living current use of anticoagulants with INR goal of 2.0-3.0 (Acute) LV (left ventricular) mural thrombus (Acute) 02/2021-dx while inpt at [facility] per Echocardiogram. on warfarin goal INR is 2-3 Chronic anticoagulation (Acute) Pruritus (Acute) Hypotension (Acute) Hepatitis (Acute) 02/2021 elevated LFTs during hospitalization, presumed acute flare secondary to hypotension associate with CHF, also history of alcohol abuse Dilated cardiomyopathy (Acute) 2020., echo EF-10-15% , admit to [facility] in acute decompensation and acute cardiogenic HF, Advanced HF team [facility] =non-ischemic Cardiomyopathy and AD HFr ACC/AHA stage C, NYHA FC III Heart failure (Acute) 02/2021, echo EF of 10 to 15% Transaminitis (Acute) Hypothyroidism (Chronic) LBBB (left bundle branch block) (Acute) Medical History Alcohol abuse dc'd 02/23/21 Anxiety Chronic low back pain COPD (chronic obstructive pulmonary disease) Depression Episode of syncope History of cervical dysplasia (08/27/14) Hypercholesteremia Insomnia Polycythemia Pruritus of vulva (08/27/14) Tobacco use disorder 2020, DC 01/2021 Weight loss Surgical History EMERGENT OPHORECTOMY 2004; TORSION OF RIGHT OVARY History of unilateral oophorectomy Family History Mother , 86 Diabetes Essential hypertension Heart disease Hyperlipidemia Stroke Father , 79 Diabetes Alcohol abuse Essential hypertension Heart disease Stroke Sister , 44 Cerebral aneurysm Stroke Paternal Grandmother Uterine cancer Maternal Grandmother Stroke Son Diabetes Son No problems noted. Sister No problems noted. Sister No problems noted. Brother No problems noted. Brother No problems noted. Social History Smoking/Tobacco Use Status: Former Tobacco Use tobacco type: cigarettes Tobacco: How many years used: 55 Second Hand Exposure: Yes Smoking risk assessment performed?: Yes Alcohol Intake: former Year quit: 2020 Drug use: Never Substance use type: does not use Counseling given: No Counseling provided: none Caregiver/Support person: No Household members: children Housing: other Details: Mobile home Communication Needs: None Pets and animals: Yes Pets and animals: cat(s) and dog(s) Sexually active: No Do you think of yourself as: straight/heterosexual Current gender identity: female What is your relationship status?: never How often do you talk on the phone with friends or family?: once per week How often do you get together with friends or relatives?: once per week How often do you attend orthodox or bahai services?: decline to answer Do you belong to any clubs or organized social groups?: no Panel score (0-1 are the most socially isolated patients): 0 What type of physical activity do you participate in: walking Duration: 15-30 minutes/day Frequency: 3-4 times per week Deyanira/Worship: [employer] Special deyanira needs: No Seatbelt use: always Drive intox or ride w/intox charter bus driver: No Do you feel safe at home: Yes Do you feel safe in your relationship?: Yes Exam Narrative Exam Narrative: 1.Const: Well-nourished, Well-developed, appearing stated age 2.Eyes: PERRL, no conjunctival injection, and symmetrical lids. 3.ENT: Atraumatic external nose and ears. Moist MM. Neck: Symmetric, trachea midline, No thyromegaly. Small area of swelling by the right lower canine area. No evidence of fluctuance. No signs of Ludewig's angina, or swelling in the posterior oropharynx. 4.CVS: +S1/S2, No murmurs or gallops. Peripheral pulses 2+ and equal in all extremities. Brisk capillary refill in all extremities. 5.RESP: Unlabored respiratory effort. Clear to auscultation bilaterally. No wheezes rales or rhonchi 6.GI: Soft, Nontender/Nondistended, No hepatosplenomegaly. No guarding or rebound. 7.MSK: Normocephalic/Atraumatic, Extremities w/o deformity or ttp No cyanosis or clubbing, Normal movement of all extremities 8.Skin: Warm, Dry. No rashes or lesions. 9.Neuro: playground director II-XII grossly intact. Sensation grossly intact, no focal neurologic deficits. 10.Psych: (AAO) x3. Appropriate mood and affect Course Vital Signs Vital signs: Vital Signs Temperature 36.7 C 01/15/22 18:39 Pulse 100 H 01/15/22 18:39 Respiratory Rate 18 01/15/22 18:39 Blood Pressure 111/70 01/15/22 18:39 Pulse Oximetry 99 01/15/22 18:39 Temperature 36.7 C 01/15/22 18:39 Temperature Source Temporal Artery Scan 01/15/22 18:39 Pulse 100 H 01/15/22 18:39 Respiratory Rate 18 01/15/22 18:39 Blood Pressure 111/70 01/15/22 18:39 Blood Pressure Position Sitting 01/15/22 18:39 Pulse Oximetry 99 01/15/22 18:39 Oxygen Delivery Method Room Air 01/15/22 18:39 Oxygen Flow Rate 0 01/15/22 18:39 Procedures Abscess I/D Site: Face Side (if applicable): Right Local Anesthetic: Bupivicaine 0.5% Amount of anesthesia used (mL): 5 Technique: Needle Aspiration Amount of fluid expressed (mL): 1 Irrigation: No Packing used?: None Complications: Bleeding (Minimal amount of bleeding which was stopped with gauze packing without complication) Nerve Block Nerve Block 1: Time out performed: Yes Amount of anesthesia used (mL): 5 Side: right Intraoral Nerve Block: inferior alveolar Procedure Successful: Yes Patient Tolerated Procedure: well and no complications Complications: none
[2022-01-15] MEDS: Bupivacaine 0.5% Pres-Free 30 ML VIAL (20:23)
[2022-01-15] MEDS: Amox. 875/Clav. 125, 2 TABS/BTL 1 TAB PO (20:23)
== END 2022-01-15 20:25 | disposition home or self-care (01) ==
PROVIDERS: Emergency Provider Student in an Organized Health Care Education/Training Program; PCP Family Medicine
DX: K04.7 Periapical abscess without sinus (principal); J44.9 Chronic obstructive pulmonary disease, unspecified; Z87.891 Personal history of nicotine dependence; Z95.810 Presence of automatic (implantable) cardiac defibrillator; Z79.01 Long term (current) use of anticoagulants
CPT/HCPCS: 41800; 99283; 99284

== ENCOUNTER 2022-01-16 10:12 | Emergency (ER) | payer BC, SELFPAY ==
[2022-01-16 10:31] VITALS: BP 108/64; PULSE 65; RESP 16; TEMP 36.7; O2SAT 96
--- NOTE | 2022-01-16 12:41 | ED.GENADUL_ITS ---
Discharge Plan Disposition Patient Disposition: HOME Condition: Stable Discharge Details Clinical Impression: Dental infection Primary Care Provider: Sunday Galvez ED Provider: Grecia Britt Home Meds and New Rx's Prescriptions: Continued alum-mag hydroxide-simeth 200-200-20 mg/5 mL suspension 10 ml PO QID PRN Rx Instructions: administer between meals and at bedtime multivitamin tablet 1 tab PO DAILY PRN metoprolol succinate 25 mg tablet extended release 24 hr 25 mg PO DAILY Qty: 90 3RF triamcinolone acetonide 0.1 % cream 1 applic topical BID PRN (Reason: rash) Qty: 80 0RF Spiriva Respimat 1.25 mcg/actuation mist 2 puff inhalation DAILY Qty: 4 5RF Entresto 24-26 mg tablet See Rx Instructions PO ONCE Qty: 90 3RF Rx Instructions: 1/2 PO BID torsemide 20 mg tablet 20 mg PO DAILY albuterol sulfate [Ventolin HFA] 90 mcg/actuation HFA aerosol inhaler 2 puff inhalation QID PRN (Reason: shortness of breath or wheezing) Qty: 8.5 3RF atorvastatin 20 mg tablet 20 mg PO DAILY Qty: 90 6RF levothyroxine 75 mcg tablet 75 mcg PO DAILY Qty: 90 3RF spironolactone 25 mg tablet 12.5 mg PO DAILY Qty: 45 3RF Eliquis 5 mg tablet 5 mg PO BID Qty: 180 3RF Jardiance 10 mg tablet 10 mg PO DAILY Qty: 90 3RF famotidine 20 mg tablet 20 mg PO .evening Qty: 90 3RF omeprazole magnesium [Prilosec OTC] 20 mg tablet,delayed release (DR/EC) 20 mg PO DAILY Qty: 90 3RF amoxicillin-pot clavulanate 875-125 mg tablet 1 tab PO BID 6 Days Qty: 12 0RF Discharge Instructions Instructions: Dental Abscess (ED) Additional Instructions: Your exam today is consistent with soft tissue swelling. I do not see any evidence of abscess at this time. Please continue with the antibiotics as previously prescribed. You may use Tylenol as needed to help with discomfort. Ice can also help this area with swelling. Plan for you to follow-up with your dentist tomorrow at 9 AM. If you develop difficulty swallowing, shortness of breath, fever/chills, spreading of the pain or other new/worsening symptoms please seek care urgently with again. Otherwise, please continue with the Augmentin and close follow-up. Referrals: Sunday Galvez MD [Primary Care Provider] - Discharge Data Discharge Date/Time-TO BE ENTERED AT DEPARTURE: 01/16/22 13:16 Medical Decision Making Patient is a pleasant 66 year old female presenting today with c/c of right lower dental swelling. She was seen here last night by Dr. Perez who began her on Augmentin. She took her dose last night as well as this morning. He did do a fine-needle aspiration got a small amount of serosanguineous fluid. Patient is anticoagulated. She denies any fevers or chills. Denies any difficulty breathing. Denies any difficulty opening her mouth or pain with swallowing. She presents again to the ED because the swelling has increased. On exam, patient appears nontoxic. She is hemodynamically stable. No abnormality of posterior oropharynx, no hot potato voice or trismus. She is no swelling under the tongue. No appreciable swelling going down into the neck, small amount of lymphadenopathy on the right side. She does have swelling over the right lower mandible. This is not fluctuant but more soft tissue swelling. The area was explored with an ultrasound and again, I do not see any pocket of fluid. She does have some tenderness along the gumline where she did have dental work completed at the numbers 30 and 31 tooth but again, no evidence of fluctuance to suggest fluid collection or abscess. Patient reports that ov erall, she is appearing somewhat improved but swelling was what concerned her. She has not yet contacted her dentist. Spoke with dentist who is happy to see the patient tomorrow in follow-up. They s poke with patient and will see her at 9AM. At this time, I do not see evidence to suggest recurrent abscess or active drainage. I see soft tissue swelling. No evidence of this tracking or rmore signficant infection. Her pain has improved with the abx, she has only had 2 doses so far. As the pain is improving, she has no systemic symptoms, no evidence of abscess currently, will have her continue with abx, f/u with dentist tomorrow. Strict return precautions discussed. All of her questions and concerns were addressed, she is in agreement with this plan. HPI General Date/Time Provider Initiated Documentation: 01/16/22 11:07 . Limitations to Documentation: no limitations . Information obtained by: patient, RN notes reviewed and old records reviewed . History of Present Illness 66 year old F presents to the emergency department with the chief complaint of right lower dental pain, facial swelling, described as mild (improved from yesterday in regards to pain), Quality is described as aching, and is localized to the face and mouth. Patient reports no radiation. Patient started experiencing this day(s) and it has been constant (pain improved, swelling increased over night). No relieving factors improve symptom(s), No exacerbating factors reported . Patient notes denies chest pain, cough, diaphoresis, fever/chills, headaches, loss of appetite, rash and shortness of breath. Patient did receive the following treatments prior to arrival, other (abx) Related Data Home Medications Medication Instructions Recorded Confirmed multivitamin 1 tab PO DAILY PRN 05/29/18 01/16/22 aluminum-mag hydroxide-simethicone 10 ml PO QID PRN 05/13/21 01/16/22 200 mg-200 mg-20 mg/5 mL oral susp albuterol sulfate 90 mcg/actuation 2 puff inhalation QID PRN 06/15/21 01/16/22 aerosol inhaler (Ventolin HFA) shortness of breath or wheezing #8.5 grams atorvastatin 20 mg tablet 20 mg PO DAILY #90 tabs 06/15/21 01/16/22 levothyroxine 75 mcg tablet 75 mcg PO DAILY #90 tabs 06/15/21 01/16/22 triamcinolone acetonide 0.1 % 1 applic topical BID PRN rash #80 06/22/21 01/16/22 topical cream grams sacubitril 24 mg-valsartan 26 mg See Rx Instructions PO ONCE #90 07/25/21 01/16/22 tablet (Entresto) tabs spironolactone 25 mg tablet 12.5 mg PO DAILY #45 tabs 08/09/21 01/16/22 tiotropium bromide 1.25 2 puff inhalation DAILY #4 grams 08/19/21 01/16/22 mcg/actuation mist for inhalation (Spiriva Respimat) apixaban 5 mg tablet (Eliquis) 5 mg PO BID #180 tabs 09/19/21 01/16/22 empagliflozin 10 mg tablet 10 mg PO DAILY #90 tabs 10/04/21 01/16/22 (Jardiance) famotidine 20 mg tablet 20 mg PO .evening #90 tabs 10/04/21 01/16/22 omeprazole magnesium 20 mg 20 mg PO DAILY #90 tabs 10/10/21 01/16/22 tablet,delayed release (Prilosec OTC) torsemide 20 mg tablet 20 mg PO DAILY 11/18/21 01/16/22 metoprolol succinate 25 mg 25 mg PO DAILY #90 tabs 11/24/21 01/16/22 tablet,extended release 24 hr amoxicillin 875 mg-potassium 1 tab PO BID 6 days #12 tabs 01/15/22 01/16/22 clavulanate 125 mg tablet Previous Rx's Medication Instructions Recorded albuterol sulfate 90 mcg/actuation 2 puff inhalation QID PRN 06/15/21 aerosol inhaler (Ventolin HFA) shortness of breath or wheezing #8.5 grams atorvastatin 20 mg tablet 20 mg PO DAILY #90 tabs 06/15/21 levothyroxine 75 mcg tablet 75 mcg PO DAILY #90 tabs 06/15/21 triamcinolone acetonide 0.1 % 1 applic topical BID PRN rash #80 06/22/21 topical cream grams sacubitril 24 mg-valsartan 26 mg See Rx Instructions PO ONCE #90 07/25/21 tablet (Entresto) tabs spironolactone 25 mg tablet 12.5 mg PO DAILY #45 tabs 08/09/21 tiotropium bromide 1.25 2 puff inhalation DAILY #4 grams 08/19/21 mcg/actuation mist for inhalation (Spiriva Respimat) apixaban 5 mg tablet (Eliquis) 5 mg PO BID #180 tabs 09/19/21 empagliflozin 10 mg tablet 10 mg PO DAILY #90 tabs 10/04/21 (Jardiance) famotidine 20 mg tablet 20 mg PO .evening #90 tabs 10/04/21 omeprazole magnesium 20 mg 20 mg PO DAILY #90 tabs 10/10/21 tablet,delayed release (Prilosec OTC) metoprolol succinate 25 mg 25 mg PO DAILY #90 tabs 11/24/21 tablet,extended release 24 hr amoxicillin 875 mg-potassium 1 tab PO BID 6 days #12 tabs 01/15/22 clavulanate 125 mg tablet Allergies Allergy/AdvReac Type Severity Reaction Status Date / Time No Known Allergies Allergy Verified 01/16/22 10:36 General Stated Complaint: DentalOral DENIA: 4 Review of Systems Constitutional Constitutional: Reports as per HPI, Denies chills, Denies fever(s), Denies headache(s) and Denies poor appetite Eyes Eyes: Denies change in vision ENT Ears, Nose, Mouth, and Throat: Reports as per HPI, Reports dental pain, Denies dysphagia, Denies otalgia, Reports facial pain, Denies headache(s), Denies hoarseness, Denies lip swelling, Denies nasal congestion, Denies odynophagia and Denies sore throat Cardiovascular Cardiovascular: Reports as per HPI and Denies chest pain Respiratory Respiratory: Reports as per HPI and Denies cough Gastrointestinal Gastrointestinal: Reports as per HPI, Denies dysphagia, Denies nausea, Denies odynophagia and Denies vomiting Integumentary/Breasts Skin/Breast: Reports as per HPI, Denies erythema, Denies rash and Denies skin pain Neurologic Neurologic: Reports as per HPI and Denies headache(s) Allergic/Immunologic Allergic/Immunologic: Denies lip swelling PFSH All Active Problems (Updated 01/16/22 @ 13:05 by AALIYAH Gonzalez) Dental infection (Acute) ICD (implantable cardioverter-defibrillator) in place (Acute) 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 on warfarin goal INR is 2-3 Chronic anticoagulation (Acute) Pruritus (Acute) Hypotension (Acute) Hepatitis (Acute) 02/2021 elevated LFTs during hospitalization, presumed acute flare secondary to hypotension associate with CHF, also history of alcohol abuse Dilated cardiomyopathy (Acute) 2020., echo EF-10-15% , [place] [facility] [place] and acute cardiogenic HF, Advanced HF team [facility] [place]non-ischemic Cardiomyopathy and AD HFr ACC/AHA stage C, NYHA FC III Heart failure (Acute) 02/2021, echo EF of 10 to 15% Transaminitis (Acute) Hypothyroidism (Chronic) LBBB (left bundle branch block) (Acute) Medical History Alcohol abuse dc'd 02/23/21 Anxiety Chronic low back pain COPD (chronic obstructive pulmonary disease) Depression Episode of syncope History of cervical dysplasia (08/27/14) Hypercholesteremia Insomnia Polycythemia Pruritus of vulva (08/27/14) Tobacco use disorder 2020, DC 01/2021 Weight loss Surgical History EMERGENT OPHORECTOMY 2004; TORSION OF RIGHT OVARY History of unilateral oophorectomy Family History Mother , 86 Diabetes Essential hypertension Heart disease Hyperlipidemia Stroke Father , 79 Diabetes Alcohol abuse Essential hypertension Heart disease Stroke Sister , 44 Cerebral aneurysm Stroke Paternal Grandmother Uterine cancer Maternal Grandmother Stroke Son Diabetes Son No problems noted. Sister No problems noted. Sister No problems noted. Brother No problems noted. Brother No problems noted. Social History Smoking/Tobacco Use Status: Former Tobacco Use tobacco type: cigarettes Tobacco: How many years used: 55 Second Hand Exposure: Yes Smoking risk assessment performed?: Yes Alcohol Intake: former Year quit: 2020 Drug use: Never Substance use type: does not use Counseling given: No Counseling provided: none Caregiver/Support person: No Household members: children Housing: other Details: Mobile home Communication Needs: None Pets and animals: Yes Pets and animals: cat(s) and dog(s) Sexually active: No Do you think of yourself as: straight/heterosexual Current gender identity: female What is your relationship status?: never How often do you talk on the phone with friends or family?: once per week How often do you get together with friends or relatives?: once per week How often do you attend sikhism or pentecostalism services?: decline to answer Do you belong to any clubs or organized social groups?: no Panel score (0-1 are the most socially isolated patients): 0 What type of physical activity do you participate in: walking Duration: 15-30 minutes/day Frequency: 3-4 times per week Deyanira/Gnosticism: Restorationist Special deyanira needs: No Seatbelt use: always Drive intox or ride w/intox driver/refuse collector: No Do you feel safe at home: Yes Do you feel safe in your relationship?: Yes Exam Const General: cooperative, healthy appearing, comfortable, no acute distress, well developed and well groomed Nutritional Appearance: average body habitus and well nourished Orientation: alert and awake [facility] Head: normal to inspection, normocephalic and atraumatic Ears: hearing grossly normal bilaterally, external ears normal and TM's normal bilaterally General nose exam: external nose normal and nares normal Face and sinus: sinuses nontender Face images: 1. Area of swelling to right side lower jaw. No erythema, warmth, fluctuance, swelling under the mandible or under tongue, no swelling extending to the neck. Soft tissue swelling, evaluated with US and no fluid collection notable. Teeth and gingiva: dentition normal (recent fillings noted at 30, 31. ) and other (Gingival pain buccal with no sweling, fluctuance, erythema, discharge) Throat: posterior oropharynx normal, tonsils normal and uvula midline Eyes General: appearance normal, both eyes and all related structures Neck Neck: normal visual inspection, full ROM, no lymphadenopathy, supple and no anterior neck swelling Resp Effort & Inspection: normal respiratory effort, able to speak in complete sentences and no respiratory distress Auscultation: clear to auscultation bilaterally, no rales, no rhonchi and no wheezes Cardio Rate: regular rate Rhythm: regular rhythm Heart Sounds: S1 normal and S2 normal Skin General skin exam: no rashes or lesions noted Trauma: no lacerations or abrasions Neuro General: patient alert and patient awake Cognition: normal cognition Speech: speech normal Gait: normal gait Psych Appearance: grossly normal and well kempt Mental Status: mental status grossly normal Speech and Movement: speech and movement normal Course Vital Signs Vital signs: Vital Signs Temperature 36.7 C 01/16/22 10:31 Pulse 65 01/16/22 10:31 Respiratory Rate 16 01/16/22 10:31 Blood Pressure 108/64 01/16/22 10:31 Pulse Oximetry 96 01/16/22 10:31 Temperature 36.7 C 01/16/22 10:31 Temperature Source Temporal Artery Scan 01/16/22 10:31 Pulse 65 01/16/22 10:31 Respiratory Rate 16 01/16/22 10:31 Respiratory Effort Non-Labored 01/16/22 10:35 Blood Pressure 108/64 01/16/22 10:31 Blood Pressure Position Sitting 01/16/22 10:31 Pulse Oximetry 96 01/16/22 10:31 Oxygen Delivery Method Room Air 01/16/22 10:31 Oxygen Flow Rate 0 01/16/22 10:31 Pain Level 0 01/16/22 10:35
== END 2022-01-16 13:16 | disposition home or self-care (01) ==
PROVIDERS: Emergency Provider Physician Assistant; PCP Family Medicine
DX: K04.7 Periapical abscess without sinus (principal); J44.9 Chronic obstructive pulmonary disease, unspecified; Z87.891 Personal history of nicotine dependence; Z79.01 Long term (current) use of anticoagulants
CPT/HCPCS: 99281; 99282

== ENCOUNTER 2022-05-15 02:49 | Outpatient (CLI) | payer BC, SELFPAY ==
[2022-05-15 12:54] LABS: Anion Gap 5.9 mmol/L (3-11); BUN 17 mg/dL (7-18); CO2 31.1 mmol/L (21.0-32.0); CREATININE 1.1 mg/dL (0.55-1.02); Chloride 100 mmol/L (98-107); Estimated GFR 55.07 (mL/min/1.73m2); Glucose 96 mg/dL (74-106); Potassium 4.4 mmol/L (3.5-5.1); Sodium 137 mmol/L (136-145); TSH (W/Ref FT4) 3.22 uIU/mL (0.36-3.74)
== END 2022-05-15 02:50 | disposition home or self-care (01) ==
LOC: LOS 02:50
PROVIDERS: PCP Family Medicine; Visit Provider Family Medicine
DX: E03.9 Hypothyroidism, unspecified (principal); E87.1 Hypo-osmolality and hyponatremia
CPT/HCPCS: 36415; 80048; 84443

== ENCOUNTER 2022-10-05 01:21 | Outpatient (CLI) | payer BC, SELFPAY ==
--- NOTE | 2022-10-05 14:45 | DI.US_ITS ---
APPROVED REPORT EXAM: Comprehensive 2D, Doppler, and color-flow Echocardiogram Patient Location: Out-Patient [employer] Machine Operator: Yasmin Greenberg RDCS (AE) Indications: Cardiomyopathy Other Information Study Quality: Adequate Conclusion Left ventricle is severely dilated. Ejection fraction is 10 to 15%. There is global hypokinesis wit h some dyssynchrony of the apex Right ventricle appears grossly normal in size and function Both atria are normal in size Device lead noted in the right heart Mildly sclerotic aortic valve, trileaflet, without stenosis or regurgitation Mildly thickened mitral leaflets with mild regurgitation Normal tricuspid valve with mild regurgitation. Estimated right ventricular systolic pressure is 25 mmHg Wall motion Left Ventricle Left ventricle is severely dilated. Left ventricular systolic function is severely decreased. There i s normal left ventricular wall thickness. There is global hypokinesis of the left ventricle. There is no ventricular septal defect visualized. LVEF is 10-15%. Right Ventricle The right ventricle is normal size. The RVSP is 25.5 mmHg. Device lead is present in the right ventri arnie. Atria The left atrium size is normal. The right atrium size is normal. The interatrial septum is intact wit h no evidence for an atrial septal defect. Atrial septal aneurysm is present. Aortic Valve The Aortic valve is mildly sclerotic. Aortic valve is trileaflet. There is no aortic valvular stenosi s. No aortic regurgitation is present. Mitral Valve Mitral valve leaflets are mildly thickened. No evidence of mitral valve stenosis. Mild mitral regurgi tation. Tricuspid Valve The tricuspid valve is normal in structure. There is no tricuspid valve stenosis. Mild tricuspid regu rgitation. Pulmonic Valve The pulmonary valve is normal in structure. There is no pulmonic valvular stenosis. Trace pulmonic r egurgitation. Great Vessels The aortic root is normal in size. Ascending aorta is not well visualized. Aortic arch is not well vi sualized. IVC is normal in size and collapses >50% with inspiration. Pericardium There is no pericardial effusion. 2D Dimensions IVSD d PLAX 0.45 cm F: 0.6-1.0 LV Vol A2C d MOD 238.6 mL LVPW d PLAX 0.58 cm F: 0.6 - 1.0 LV Vol A4C d MOD 265.1 mL LVID d PLAX 7.09 cm F: 3.8 - 5.2 LA vol/ BSA A4C s A-L 18.0 mL/m2 LVDs 6.70 cm F: 2.2 - 3.5 LA Area A4C s MOD 12.47 cm2 Ao Root d 2.74 cm F: 2.7 - 3.3 LV EF A4C MOD 9.3 % LV EF Teichholz 11.7 % LV EF A2C MOD 22.7 % LVEF (Price's) 17.32 % F: 54 - 74 LV EF Biplane MOD 17.3 % LV Volume 205.20 mL F: 46 - 106 SV 44.54 mL LV Volume Index 122.14 mL/m2 F: 29 - 61 SV Index 26.54 mL/m2 LV Vol Biplane MOD 257.2 mL FS 5.35 % M-Mode TAPSE 1.86 cm (M/F) >1.7 LV Diastology MV E' medial 0.039 (>0.07 m/s) E/A Ratio 0.6 LV E/e MED 12.15 (<14) MV E Vmax 0.48 (0.4-1.3 m/s) MV E' lateral 0.045 (>0.1 m/s) MV A Vmax 0.75 (0.4-1.3 m/s) LV E/e LAT 10.55 (<14) MV E/A Ratio 0.61 MV E/E' medial 12.17 MV E/E' lateral 10.58 Aortic Valve LVOT Area 3.29 cm2 AoV Area Vmax 2.59 cm2 LVOT Vmax 0.77 m/s AoV Area/ BSA (Vmax) 1.55 cm2/m2 LVOT Mean Len. 0.47 m/s RAJINDER Mean Len. 2.29 cm2 LVOT Peak Grad 2.4 mmHg RAJINDER Mean Len. Index 1.37 cm2/m2 LVOT Mean Grad 1.1 mmHg LVOT VTI 0.106 m LVOT Diam s 2.00 cm AoV Vmax 0.98 m/s Velocity Ratio 0.79 AoV Mean Len. 0.68 m/s AoV Peak Grad 3.8 mmHg LVOT SV 35.02 mL AoV Mean Grad 2.0 mmHg AoV VTI 0.164 m AoV Area VTI 2.14 cm2 AoV Area/ BSA (VTI) 1.27 cm/m2 Mitral Valve MV DT 206 (160-240 msec) MV PHT 60 msec MV Area PHT 3.68 cm2 Pulmonary Valve PV Vmax 0.85 (0.5-1.5 m/s) RVOT Peak Gr. 1.08 mmHg PV Peak Grad 2.9 mmHg RVOT Mean Gr. 0.55 mmHg PV Mean Grad 1.5 mmHg RVOT VTI 0.096 m PV VTI 0.129 m RVOT Vmax 0.52 m/s Tricuspid Valve TR Peak Grad 22.4 mmHg TR Vmax 2.37 m/s RA Pressure 3.00 mmHg RVSP (TR) 25.5 mmHg
== END 2022-10-05 01:41 ==
PROVIDERS: PCP Family Medicine; Visit Provider Nurse Practitioner Adult Health
DX: I42.9 Cardiomyopathy, unspecified (principal)
CPT/HCPCS: 93306

== ENCOUNTER 2022-12-13 01:42 | Outpatient (CLI) | payer MEDICARE, SELFPAY ==
--- NOTE | 2022-12-13 08:30 | DI.MAMMO_ITS ---
Exam(s) MAMMO SCREENING EXAM: MAMMO SCREENING CLINICAL HISTORY: screening,z12.39 TECHNIQUE: Mammograms were interpreted according to the usual protocol including computer analysis w [employer] CAD system, tomosynthesis and C-view imaging. COMPARISON: CR XR PORTABLE CHEST AP from 04/11/2021 FINDINGS: The breasts are composed of scattered fibroglandular densities, Breast Density category B. Positioning of left MLO view somewhat suboptimal due to pacemaker. No suspicious masses or suspicious microcalcifications are seen. No skin thickening or abnormal axillary lymph nodes are seen. There has been no significant change from prior exams. IMPRESSION: BI-RADS Category 1, Negative mammogram Yearly screening mammography is recommended. Breast Density - Category B, scattered fibroglandular densities. A negative radiographic report should not delay biopsy if a dominant or clinically suspicious mass is present. Up to ten percent of cancers are not identified on mammography. A negative report may reinforce clinical impression. Adenosis and dense breasts may obscure an underlying neoplasm. False positive reports average 6 to 10%. Patient will receive a letter notifying them of these results.
== END 2022-12-13 02:02 ==
LOC: DI 01:46
PROVIDERS: PCP Family Medicine; Visit Provider Family Medicine
DX: Z12.31 Encounter for screening mammogram for malignant neoplasm of breast (principal)
CPT/HCPCS: 77063; 77067

== ENCOUNTER 2023-05-29 08:48 | Outpatient (CLI) | payer MEDICARE, SELFPAY ==
--- NOTE | 2023-05-29 08:45 | RT.EKG_ITS ---
APPROVED REPORT Exam: Resting ECG Reason for Exam: [facility] Patient Location: O HR:64 bpm ECG Measurements Heart Rate 64 AXIS OR 155 P 69 QRSd 146 QRS 73 QT 486 T 91 QTc 502 Conclusion Atrial-sensed ventricular-paced complexes...other complexes also detected No further analysis attempted due to paced rhythm I have reviewed and interpreted ECG and agree with software generated interpretation.
== END 2023-05-29 08:49 | disposition home or self-care (01) ==
LOC: DI.CARD 08:50
PROVIDERS: PCP Family Medicine; Visit Provider Internal Medicine Interventional Cardiology
DX: I42.8 Other cardiomyopathies (principal); Z95.810 Presence of automatic (implantable) cardiac defibrillator
CPT/HCPCS: 93010

== ENCOUNTER → 2023-05-29 08:48 | Outpatient (BNVA) | payer MEDICARE, SELFPAY | PROVIDERS: PCP Family Medicine; Referring Provider Family Medicine; Visit Provider Internal Medicine Interventional Cardiology | DX: Z79.01 Long term (current) use of anticoagulants (principal) | CPT/HCPCS: 93005; 99213 ==

== ENCOUNTER 2023-06-18 04:49 | Outpatient (CLI) | payer MEDICARE, SELFPAY ==
[2023-06-18 12:26] LABS: HCT 35.1 % (36.0-46.0); HGB 10.8 g/dL (11.2-15.7); MCH 27.1 pg (27.0-33.0); MCHC 30.8 % (32.0-36.0); MCV 88 fL (80-95); MPV 9.5 fL (8.0-11.0); Platelet Count 296 10^3/uL (130-400); RBC 3.99 10^6/uL (3.93-5.22); RDW-SD 48.3 fL; WBC 7.53 10^3/uL (4.4-10.8)
[2023-06-18 12:54] LABS: ALT 17 U/L (14-59); AST 17 U/L (15-37); Albumin 3.8 g/dL (3.4-5.0); Alkaline Phosphatase 109 U/L (46-116); Anion Gap 9.1 mmol/L (3-11); BUN 14 mg/dL (7-18); Bilirubin, Direct 0.1 mg/dL (0.0-0.2); Bilirubin, Total 0.5 mg/dL (0.2-1.0); CO2 28.9 mmol/L (21.0-32.0); CREATININE 1.1 mg/dL (0.55-1.02); Calcium 9.4 mg/dL (8.5-10.1); Chloride 103 mmol/L (98-107); Estimated GFR 54.39 (mL/min/1.73m2); Glucose 83 mg/dL (74-106); Potassium 3.8 mmol/L (3.5-5.1); Sodium 141 mmol/L (136-145); TSH (W/Ref FT4) 1.98 uIU/mL (0.36-3.74)
[2023-06-18 21:56] LABS: Lab Add On Test DONE
[2023-06-18 22:33] LABS: Iron 38 ug/dL (50-170)
[2023-06-18 23:00] LABS: Ferritin 17 ng/mL (8-252); Vitamin B12 323 pg/mL (193-986)
== END 2023-06-18 04:50 | disposition home or self-care (01) ==
LOC: LOS 04:49
PROVIDERS: PCP Family Medicine; Visit Provider Family Medicine
DX: E03.9 Hypothyroidism, unspecified (principal); E87.1 Hypo-osmolality and hyponatremia; R53.83 Other fatigue; G72.89 Other specified myopathies; D64.9 Anemia, unspecified
CPT/HCPCS: 36415; 80048; 80076; 85027; 82607; 82728; 83540; 84443

== ENCOUNTER 2023-09-26 09:00 | Outpatient (CLI) | payer MEDICARE, SELFPAY ==
--- NOTE | 2023-09-26 09:00 | RT.EKG_ITS ---
APPROVED REPORT Exam: Resting ECG Reason for Exam: cardiomyopathy Patient Location: O HR:75 bpm ECG Measurements Heart Rate 75 AXIS CO 40 P 71 QRSd 137 QRS 71 QT 460 T 94 QTc 514 Conclusion Atrial-sensed ventricular-paced rhythm...ventricular pacing tracks p-waves No further analysis attempted due to paced rhythm Baseline wander in lead(s) II,III,aVF
== END 2023-09-26 09:01 | disposition home or self-care (01) ==
LOC: DI.CARD 09:01
PROVIDERS: PCP Family Medicine; Visit Provider Internal Medicine Cardiovascular Disease
DX: I44.7 Left bundle-branch block, unspecified (principal); Z95.810 Presence of automatic (implantable) cardiac defibrillator
CPT/HCPCS: 93010

== ENCOUNTER → 2023-09-26 10:50 | Outpatient (BNVA) | payer MEDICARE, SELFPAY | PROVIDERS: PCP Family Medicine; Referring Provider Family Medicine; Visit Provider Internal Medicine Cardiovascular Disease | DX: Z95.810 Presence of automatic (implantable) cardiac defibrillator (principal); I44.7 Left bundle-branch block, unspecified; I42.8 Other cardiomyopathies | CPT/HCPCS: 93005; 93284 ==

== ENCOUNTER 2023-11-13 05:02 | Outpatient (CLI) | payer MEDICARE, SELFPAY ==
[2023-11-13 12:21] LABS: Iron 76 ug/dL (50-170)
[2023-11-13 12:31] LABS: Ferritin 35 ng/mL (8-252)
[2023-11-14 10:46] LABS: HIV-1/2 Ag & Ab Screen Negative (Negative)
== END 2023-11-13 05:03 | disposition home or self-care (01) ==
LOC: LOS 05:02
PROVIDERS: PCP Family Medicine; Visit Provider Family Medicine
DX: D64.9 Anemia, unspecified (principal); Z00.00 Encounter for general adult medical examination without abnormal findings
CPT/HCPCS: 36415; 87389; 82728; 83540

== ENCOUNTER → 2023-11-27 08:58 | Outpatient (BNVA) | payer MEDICARE, SELFPAY | PROVIDERS: PCP Family Medicine; Visit Provider Internal Medicine Cardiovascular Disease | DX: I42.8 Other cardiomyopathies (principal); Z95.810 Presence of automatic (implantable) cardiac defibrillator | CPT/HCPCS: 99213 ==

== ENCOUNTER → 2023-12-17 00:57 | Outpatient (CLI) | payer MEDICARE, SELFPAY ==
--- NOTE | 2023-12-17 07:00 | DI.MAMMO_ITS ---
Exam(s) MAMMO SCREENING EXAM: MAMMO SCREENING CLINICAL HISTORY: screening,z12.39 TECHNIQUE: Bilateral full field digital CC and MLO mammographic images were obtained with 3D tomosyn thesis and utilizing computer aided detection (CAD). COMPARISON: Available for comparison. FINDINGS: Masses/Architectural Distortion: None seen. Microcalcifications: No suspicious pleomorphic-type are seen. Skin Thickening/Nipple Retraction: None. IMPRESSION: 1. No significant interval change with no specific features of malignancy noted. 2. Unless there is more urgent need, screening mammography is recommended, as per [employer] guidelines. BI-RADS Category 1 - Negative Breast Density - Category B - Scattered areas of fibroglandular density Breast density category C or D implies that the patient has dense breast tissue. Dense breast tissue is very common and is not abnormal but dense breast tissue can make it harder to find cancer on a ma mmogram. Also, dense breast tissue may increase their breast cancer risk. This information about the result of the mammogram report was provided to the patient to raise their awareness. Use this report when you speak with the patient about their risks for breast cancer, which includes their family hist ory. At that time, you may recommend for more screening tests (Ultrasound or MRI) as they might be us eful based on their risk. A negative radiographic report should not delay biopsy if a dominant or clinically suspicious mass is present. Up to ten percent of cancers are not identified on mammography. A negative report may reinforce clinical impression. Adenosis and dense breasts may obscure an underlying neoplasm. False positive reports average 6 to 10%. Patient will receive a letter notifying them of these results.
== END ==
PROVIDERS: PCP Family Medicine; Visit Provider Family Medicine
DX: Z12.39 Encounter for other screening for malignant neoplasm of breast (principal); Z12.31 Encounter for screening mammogram for malignant neoplasm of breast
CPT/HCPCS: 77063; 77067

== ENCOUNTER 2024-05-19 01:35 | Outpatient (CLI) | payer MEDICARE, SELFPAY ==
--- NOTE | 2024-05-19 14:30 | DI.US_ITS ---
APPROVED REPORT EXAM: Comprehensive 2D, Doppler, and color-flow Echocardiogram Patient Location: Out-Patient Brake Specialist: Luis F Godfrey RDCS (AE) Indications: Reassess EF, dilated WELDING MACHINE OPERATOR ARC Conclusion Left ventricle is dilated. Wall thickness is normal. Ejection fraction is 25% with severe global hy pokinesis Normal right ventricular size and function Both atria are moderately dilated There are no structural valvular abnormalities Mild mitral and tricuspid regurgitation Estimated right ventricular systolic pressure is 21 mmHg Wall motion Left Ventricle Left ventricle is severely dilated. Left ventricular systolic function is severely decreased. There i s normal left ventricular wall thickness. There is global hypokinesis of the left ventricle. There is no ventricular septal defect visualized. LVEF is 25%. Right Ventricle The right ventricle is normal size. The right ventricular systolic function is normal. Device lead is present in the right ventricle. Atria Left atrium is moderately dilated. Right atrium is moderately dilated. The interatrial septum is inta ct with no evidence for an atrial septal defect. Aortic Valve The aortic valve is normal in structure. There is no aortic valvular stenosis. No aortic regurgitatio n is present. Mitral Valve The mitral valve is normal in structure. No evidence of mitral valve stenosis. Mild mitral regurgitat ion. Tricuspid Valve The tricuspid valve is normal in structure. There is no tricuspid valve stenosis. Mild tricuspid regu rgitation. The RVSP is 20.7 mmHg. Pulmonic Valve Pulmonic valve is not well visualized. Great Vessels Ascending aorta is not well visualized. Aortic arch is normal in caliber. IVC is normal in size and c ollapses >50% with inspiration. Pericardium Trivial pericardial effusion. 2D Dimensions IVSD d PLAX 0.56 cm F: 0.6-1.0 Ao Root d 2.81 cm F: 2.7 - 3.3 LVPW d PLAX 0.60 cm F: 0.6 - 1.0 LVID d PLAX 7.54 cm F: 3.8 - 5.2 LVDs 6.64 cm F: 2.2 - 3.5 LV EF Teichholz 25.0 % FS 12.00 % LV EDV (Teich) 302.2 mL LV ESV (Teich) 226.6 mL Stroke Vol Index (Teich) 44.75 Auto EF LV EDV A4C 197.2 mL LV EDV A2C 168.7 mL LV EDV BP 187.0 mL LV ESV A4C 144.6 mL LV ESV A2C 127.5 mL LV ESV BP 138.9 mL LVEF(%) A4C 26.7 % LVEF(%) A2C 24.4 % LVEF(%) BP 25.7 % LV SV A4C 52.6 ml LV SV A2C 41.2 ml LV SV BP 48.1 ml LV CO A4C 3.6 L/min LV CO A2C 2.7 L/min LV CO BP 3.2 L/min HR A4C 68.31 BPM HR A2C 65.69 BPM LV EDV Index (BP) LA Volume LA Length A4C 4.6 cm LA Length A2C LA Area A4C s 16.08 cm2 LA Area A2C s LA Vol A4C A-L 47.32 mL LA Vol A2C A-L LA Vol Biplane A-L LA Vol A4C MOD 42.5 mL LA Vol A2C MOD LA Vol BP MOD RA Volume RA Area A4C 10.6 cm2 RA ESV A4C (A-L) 27.4mL RA Vol/BSA A4C A-L RA Length A4C 3.5 cm RA ESV A4C (MOD) 26.7mL LV Diastology MV E' medial 0.039 (>0.07 m/s) MV E Vmax 0.70 (0.4-1.3 m/s) MV E' lateral 0.038 (>0.1 m/s) Aortic Valve AoV Vmax 0.84 m/s LVOT Vmax 0.57 m/s AoV Peak Grad 2.8 mmHg LVOT Peak Grad 1.3 mmHg AoV Area (Vmax) 1.84 cm2 LVOT VTI 0.091 m AoV VTI 0.167 m LVOT Mean Grad 0.6 mmHg AoV Mean Len. 0.57 m/s LVOT SV 24.89 mL AoV Mean Grad 1.5 mmHg LVOT Diam s 1.85 cm AoV Area (VTI) 1.49 cm2 AV Regurg Peak Gr. 2.83 mmHg Velocity Ratio 0.68 Mitral Valve MV Vmax TIPS 0.92 m/s MV Mean Grad 2.1 (<2mmHg) MV VTI 0.155 m Tricuspid Valve RA Pressure 3.00 mmHg TR Vmax 2.10 m/s TR Peak Grad 17.7 mmHg RVSP (TR) 20.7 mmHg
== END 2024-05-19 01:55 ==
LOC: DI 01:35
PROVIDERS: PCP Family Medicine; Visit Provider Family Medicine
DX: I42.0 Dilated cardiomyopathy (principal); I36.0 Nonrheumatic tricuspid (valve) stenosis
CPT/HCPCS: 93306

== ENCOUNTER → 2024-06-02 09:59 | Outpatient (BNVA) | payer MEDICARE, SELFPAY | PROVIDERS: PCP Family Medicine; Visit Provider Registered Nurse | DX: I42.0 Dilated cardiomyopathy (principal) | CPT/HCPCS: 99214 ==

== ENCOUNTER 2024-08-14 01:37 | Outpatient (CLI) | payer MEDICARE, SELFPAY ==
[2024-08-14 12:25] LABS: HCT 43.9 % (36.0-46.0); HGB 13.5 g/dL (11.2-15.7); MCH 29.3 pg (27.0-33.0); MCHC 30.8 % (32.0-36.0); MCV 95 fL (80-95); MPV 9.6 fL (8.0-11.0); Platelet Count 255 10^3/uL (130-400); RBC 4.61 10^6/uL (3.93-5.22); RDW 13.8 % (11.7-14.6); RDW-SD 48.8 fL; WBC 7.31 10^3/uL (4.4-10.8)
[2024-08-14 12:41] LABS: ALT 18 U/L (14-59); AST 16 U/L (15-37); Albumin 4.2 g/dL (3.4-5.0); Alkaline Phosphatase 97 U/L (46-116); Anion Gap 7.4 mmol/L (3-11); BUN 12 mg/dL (7-18); Bilirubin, Total 0.5 mg/dL (0.2-1.0); CO2 30.6 mmol/L (21.0-32.0); CREATININE 1.1 mg/dL (0.55-1.02); Calcium 9.5 mg/dL (8.5-10.1); Chloride 103 mmol/L (98-107); Estimated GFR 54.06 (mL/min/1.73m2); Glucose 87 mg/dL (74-106); Potassium 4.5 mmol/L (3.5-5.1); Sodium 141 mmol/L (136-145); TSH (W/Ref FT4) 4.41 uIU/mL (0.36-3.74); Total Protein 7.4 g/dL (6.4-8.2)
[2024-08-14 22:58] LABS: T4, Free 1.3 ng/dL (0.8-2.2)
== END 2024-08-14 01:38 | disposition home or self-care (01) ==
LOC: LOS 01:38
PROVIDERS: PCP Family Medicine; Visit Provider Family Medicine
DX: R53.83 Other fatigue (principal); R10.9 Unspecified abdominal pain; E03.9 Hypothyroidism, unspecified
CPT/HCPCS: 36415; 80053; 85027; 84439; 84443

== ENCOUNTER → 2024-10-01 10:58 | Outpatient (BNVA) | payer MEDICARE, SELFPAY | PROVIDERS: PCP Family Medicine; Visit Provider Registered Nurse | DX: Z45.018 Encounter for adjustment and management of other part of cardiac pacemaker (principal); I47.10 Supraventricular tachycardia, unspecified | CPT/HCPCS: 93281; 99214 ==

== ENCOUNTER 2024-11-24 01:14 | Outpatient (CLI) | payer MEDICARE, SELFPAY ==
--- NOTE | 2024-11-24 10:28 | DI.CTLCSR_ITS ---
Exam(s) CT CHEST LUNG CANCER SCREEN EXAM: CT CHEST LUNG CANCER SCREEN CLINICAL HISTORY: Screening for lung cancer,former tobacco use,z87.891 TECHNIQUE: Imaging Protocol: Axial computed tomography images with coronal and sagittal reformatted images were created and reviewed. Low dose screening protocol. COMPARISON: CT CT CHEST LUNG CANCER SCREEN from 08/19/2020 FINDINGS: Tracheobronchial tree: No bronchiectasis or mucus plugging. Mediastinum and Gladis: No dominant adenopathy or fluid collection. Pulmonary parenchyma: No consolidation or dominant measurable mass. Moderate emphysematous changes. No significant interstitial changes. Small area of scarring medial right middle lobe. Lung Nodules: None. Pleura: No effusion. No pneumothorax. Heart: The marked left ventricular dilatation. No coronary artery calcifications are seen. No pericardial effusion. Aorta: Thoracic aorta non-dilated.Mild calcification. Upper abdomen: Unremarkable. Bones: Unremarkable for age. Soft Tissues: Pacemaker battery pack over left chest wall. IMPRESSION: No suspicious pulmonary nodules. Lung RADS Cat 1 - Negative: No nodules and definitely benign nodules Lung-RADS 1.0 CATEGORIES: Category 0 - Prior chest CT exam(s) being located for comparison. Category 1 - Annual screening in 12 months. No nodules or definitely benign nodules. Category 2 - Annual screening in 12 months. Benign appearance. Nodules with low likelihood of becoming active cancer. Category 3 - 6-month follow-up. Probably benign. Short-term follow-up suggested. Nodules with low likelihood of becoming active cancer. Category 4A - 3-month follow-up and CT/PET if >8 mm in size. Suspicious finding. Findings which require additional testing. Category 4B - Findings which require additional testing and tissue sampling. Category 4X - Category 3 or 4 nodules with additional features or imaging findings that increases the suspicion of malignancy. Modifier S- Potentially clinically significant findings (non lung cancer) RADIATION DOSE DELIVERED: !Error Total DLP DATA REPOSITORY: All CT scans at this facility are submitted to the National Radiology Data Registry (NRDR) Dose Index Registry (DIR) with the [employer] (A[employer]). RADIATION OPTIMIZATION: All CT scans at this facility use at least one of these dose optimization techniques: automated exposure control; mA and/or kV adjustment per patient size (includes targeted exams where dose is matched to clinical indication); or iterative reconstruction.
== END 2024-11-24 01:34 ==
PROVIDERS: PCP Family Medicine; Visit Provider Family Medicine
DX: Z12.2 Encounter for screening for malignant neoplasm of respiratory organs (principal); Z87.891 Personal history of nicotine dependence
CPT/HCPCS: 71271

== ENCOUNTER 2024-11-24 01:14 | Outpatient (CLI) | payer MEDICARE, SELFPAY ==
--- NOTE | 2024-11-24 09:30 | DI.US_ITS ---
APPROVED REPORT EXAM: Comprehensive 2D, Doppler, and color-flow Echocardiogram Patient Location: Out-Patient Punchboard Inserter: Luis F Godfrey RDCS (AE) Indications: Dilated CORRECTIONS CASEWORKER, assess EF Other Information Study Quality: Adequate Conclusion LV is dilated. Wall thickness is normal. There is severe left ventricular systolic dysfunction. EF biplane was approximately 30% but visually it appears 20% or less. There is global hypokinesis Normal right ventricular size Both atria are normal in size Device lead noted in the right heart There are no structural valvular abnormalities Mild mitral and tricuspid regurgitation. Estimated right ventricular systolic pressure is less than 20 mmHg Wall motion Left Ventricle Left ventricle is moderately dilated. Left ventricular systolic function is moderate to severely decreased. There is normal left ventricular wall thickness. There is global hypokinesis of the left ventricle. There is no ventricular septal defect visualized. LVEF is 30-35%. Right Ventricle The right ventricle is normal size. The right ventricular systolic function is normal. Pacemaker lead is present in the right ventricle. Atria The left atrium size is normal. The right atrium size is normal. The interatrial septum is intact with no evidence for an atrial septal defect. Aortic Valve The aortic valve is normal in structure. There is no aortic valvular stenosis. No aortic regurgitation is present. Mitral Valve The mitral valve is normal in structure. No evidence of mitral valve stenosis. Mild mitral regurgitation. Tricuspid Valve The tricuspid valve is normal in structure. There is no tricuspid valve stenosis. Mild tricuspid regurgitation. Pulmonic Valve The pulmonary valve is normal in structure. There is no pulmonic valvular stenosis. Trace pulmonic regurgitation. Great Vessels The aortic root is normal in size. The ascending aorta is normal in size. IVC is normal in size and collapses >50% with inspiration. Pericardium There is no pericardial effusion. 2D Dimensions IVSD d PLAX 0.93 cm F: 0.6-1.0 Ao Root d 2.82 cm F: 2.7 - 3.3 LVPW d PLAX 1.36 cm F: 0.6 - 1.0 Ao Asc Diam d 2.86 cm F: 2.3 - 3.1 LVID d PLAX 6.74 cm F: 3.8 - 5.2 LVDs 5.77 cm F: 2.2 - 3.5 LV EF Teichholz 29.9 % FS 14.43 % LV EDV (Teich) 234.6 mL LV ESV (Teich) 164.5 mL Stroke Vol Index (Teich) 41.74 M-Mode TAPSE 1.74 cm (M/F) >1.7 Auto EF LV EDV A4C 180.7 mL LV EDV A2C 133.6 mL LV EDV BP 157.7 mL LV ESV A4C 127.0 mL LV ESV A2C 86.4 mL LV ESV BP 104.7 mL LVEF(%) A4C 29.7 % LVEF(%) A2C 35.4 % LVEF(%) BP 33.6 % LV SV A4C 53.6 ml LV SV A2C 47.3 ml LV SV BP 53.0 ml LV CO A4C 3.3 L/min LV CO A2C 3.0 L/min LV CO BP 3.1 L/min HR A4C 61.75 BPM HR A2C 62.72 BPM LV EDV Index (BP) LA Volume LA Length A4C 4.9 cm LA Length A2C 3.5 cm LA Area A4C s 8.51 cm2 LA Area A2C s 8.16 cm2 LA Vol A4C A-L 12.66 mL LA Vol A2C A-L 15.96 mL LA Vol Biplane A-L 16.6 mL LA Vol/BSA A4C A-L LA Vol/BSA A2C A-L LA Vol/BSA BP A-L 9.9 mL/m2 LA Vol A4C MOD 11.8 mL LA Vol A2C MOD 15.5 mL LA Vol BP MOD 15.6 mL RA Volume RA Area A4C 5.9 cm2 RA ESV A4C (A-L) 9.0mL RA Vol/BSA A4C A-L RA Length A4C 3.3 cm RA ESV A4C (MOD) 9.0mL LV Diastology MV E' medial 0.043 (>0.07 m/s) MV E Vmax 0.90 (0.4-1.3 m/s) MV E' lateral 0.044 (>0.1 m/s) Aortic Valve AoV Vmax 0.90 m/s LVOT Vmax 0.68 m/s AoV Peak Grad 3.3 mmHg LVOT Peak Grad 1.9 mmHg AoV Area (Vmax) 2.73 cm2 LVOT VTI 0.128 m AoV VTI 0.180 m LVOT Mean Grad 0.8 mmHg AoV Mean Len. 0.61 m/s LVOT SV 46.39 mL AoV Mean Grad 1.7 mmHg LVOT Diam s 2.10 cm AoV Area (VTI) 2.57 cm2 AV Regurg Peak Gr. 3.27 mmHg Velocity Ratio 0.76 Pulmonary Valve PV Vmax 0.54 (0.5-1.5 m/s) RVOT Vmax 0.69 m/s PV Peak Grad 1.2 mmHg RVOT Peak Gr. 1.9 mmHg PV Mean Len 0.40 m/s RVOT VTI 0.149 m PV Mean Grad 0.7 mmHg RVOT Mean Gr. 1.1 mmHg Tricuspid Valve TR Vmax 1.93 m/s TR Peak Grad 14.9 mmHg
== END 2024-11-24 01:34 ==
PROVIDERS: PCP Family Medicine; Visit Provider Internal Medicine Cardiovascular Disease
DX: I42.0 Dilated cardiomyopathy (principal)
CPT/HCPCS: 93306

== ENCOUNTER 2024-12-03 08:46 | Outpatient (CLI) | payer MEDICARE, SELFPAY ==
--- NOTE | 2024-12-03 08:45 | RT.EKG_ITS ---
APPROVED REPORT Exam: Resting ECG Reason for Exam: cardiomyopathy Patient Location: O HR:69 bpm ECG Measurements Heart Rate 69 AXIS VT 146 P 128 QRSd 191 QRS 202 QT 520 T -45 QTc 557 Conclusion Ventricular-paced rhythm No further analysis attempted due to paced rhythm
== END 2024-12-03 08:47 | disposition home or self-care (01) ==
LOC: DI.CARD 08:46
PROVIDERS: PCP Family Medicine; Visit Provider Registered Nurse
DX: I44.7 Left bundle-branch block, unspecified (principal); I42.0 Dilated cardiomyopathy; I50.23 Acute on chronic systolic (congestive) heart failure
CPT/HCPCS: 93010

== ENCOUNTER → 2024-12-03 09:31 | Outpatient (BNVA) | payer MEDICARE, SELFPAY | PROVIDERS: PCP Family Medicine; Visit Provider Registered Nurse | DX: I42.0 Dilated cardiomyopathy (principal); I44.7 Left bundle-branch block, unspecified; I50.23 Acute on chronic systolic (congestive) heart failure | CPT/HCPCS: 99214; 93005 ==

== ENCOUNTER 2024-12-31 01:29 | Outpatient (CLI) | payer MEDICARE, SELFPAY ==
--- NOTE | 2024-12-31 07:45 | DI.MAMMO_ITS ---
Exam(s) MAMMO SCREENING EXAM: MAMMO SCREENING CLINICAL HISTORY: screening,z12.39 TECHNIQUE: Bilateral full field digital CC and MLO mammographic images were obtained with 3D tomosynthesis and utilizing computer aided detection (CAD). COMPARISON: Comparison is made with prior examinations. FINDINGS: Masses/Architectural Distortion: No suspicious masses or areas of architectural distortion are present. There is again seen a area of breast asymmetry in the upper left breast on the MLO view. There is now in 3 mm nodular density within the area of breast asymmetry. This area should be further evaluated with a spot compression view. Microcalcifications: No suspicious pleomorphic-type are seen. Skin Thickening/Nipple Retraction: None. IMPRESSION: 1. New 3 mm nodule in the upper left breast on the MLO view. 2. Spot compression views requested for further evaluation. Ultrasound may be indicated at that time. BI-RADS Category 0 - Incomplete: Need additional imaging evaluation Breast Density - Category B - There are scattered areas of fibroglandular density. Breast density Category C or D implies that the patient has dense breast tissue. Dense breast tissue can make it harder to find cancer on a mammogram. Dense breast tissue is also associated with an increased risk of breast cancer. This information about the result of the mammogram report was provided to the patient to raise their awareness. Use this report when you speak with the patient about their risks for breast cancer, which includes their family history. At that time, you may recommend additional screening tests (Ultrasound or MRI) as these tests may add significant information. A negative radiographic report should not delay biopsy if a dominant or clinically suspicious mass is present. Up to ten percent of cancers are not identified on mammography. A negative report may reinforce clinical impression. Adenosis and dense breasts may obscure an underlying neoplasm. False positive reports average 6 to 10%. Patient will receive a letter notifying them of these results.
--- NOTE | 2024-12-31 14:03 | DI.DEXA_ITS ---
Exam(s) XR DEXA BONE DENSITY W/WO CHUCK EXAM: XR DEXA BONE DENSITY W/WO CHUCK CLINICAL HISTORY: Annual exam,menopausal disorder,n95.9 TECHNIQUE: Routine DEXA evaluation of the lumbar spine, hip, or forearm. COMPARISON: No exams were available for comparison FINDINGS: Performed on a Hologic unit. Lateral image: No compression fracture evident. Lumbar Spine total T-score: -0.1 which is within normal limits. Hip total T-score:-1.7 which is osteopenia range. Independent reading at the level of the femoral neck yields T-score of -2.7 which is osteoporosis range Forearm total T-score: Minus 2.0 which is osteopenia range IMPRESSION: Bone mineral density measures in the osteopenia bordering on osteoporosis range in the hip and forearm. Bone mineral density is within normal limits in the lumbar spine.. Fracture risk is moderate. Note: Any spine fracture indicates 5x risk for subsequent spine fracture and 2x risk for subsequent hip fracture. World Health Organization criteria for BMD interpretation classify patients: Normal...... T- Score at or above -1.0 Osteopenic... T- Score between -1.0 and -2.5 Osteoporosis... T-Score at or below -2.5
== END 2024-12-31 01:49 ==
PROVIDERS: PCP Family Medicine; Visit Provider Family Medicine
DX: Z12.31 Encounter for screening mammogram for malignant neoplasm of breast (principal); N95.9 Unspecified menopausal and perimenopausal disorder; R92.323 Mammographic fibroglandular density, bilateral breasts
CPT/HCPCS: 77063; 77067; 77080

== ENCOUNTER 2025-01-05 01:56 | Outpatient (CLI) | payer MEDICARE, SELFPAY ==
--- NOTE | 2025-01-05 | DI.MAMMO_ITS ---
Exam(s) MAMMO SCREEN CALL BACK UNI EXAM: MAMMO SCREEN CALL BACK UNI CLINICAL HISTORY: F/U MAMMO, R92.8,NEW 3 MM UPPER LT BREAST NODULE TECHNIQUE: Spot compression views with tomographic imaging were performed. COMPARISON: 2020 through recent exam 31 December 2024 FINDINGS: No suspicious masses or suspicious microcalcifications are seen. No persistent abnormality is seen on the additional views performed. The findings are consistent with overlying fibroglandular tissue with a vessel. There has been no significant change from prior exams. IMPRESSION: BI-RADS Category 1, Negative Yearly screening mammography is recommended. Breast Density - Category B - There are scattered areas of fibroglandular density. Breast density Category C or D implies that the patient has dense breast tissue. Dense breast tissue can make it harder to find cancer on a mammogram. Dense breast tissue is also associated with an increased risk of breast cancer. This information about the result of the mammogram report was provided to the patient to raise their awareness. Use this report when you speak with the patient about their risks for breast cancer, which includes their family history. At that time, you may recommend additional screening tests (Ultrasound or MRI) as these tests may add significant information. A negative radiographic report should not delay biopsy if a dominant or clinically suspicious mass is present. Up to ten percent of cancers are not identified on mammography. A negative report may reinforce clinical impression. Adenosis and dense breasts may obscure an underlying neoplasm. False positive reports average 6 to 10%. Patient will receive a letter notifying them of these results.
== END 2025-01-05 02:16 ==
PROVIDERS: PCP Family Medicine; Visit Provider Family Medicine
DX: Z12.31 Encounter for screening mammogram for malignant neoplasm of breast (principal); R92.8 Other abnormal and inconclusive findings on diagnostic imaging of breast; R92.323 Mammographic fibroglandular density, bilateral breasts
CPT/HCPCS: 77063; 77067

== ENCOUNTER → 2025-04-29 10:59 | Outpatient (BNVA) | payer MEDICARE, SELFPAY | PROVIDERS: PCP Family Medicine; Visit Provider Registered Nurse | DX: I51.9 Heart disease, unspecified (principal); Z45.02 Encounter for adjustment and management of automatic implantable cardiac defibrillator; Z79.01 Long term (current) use of anticoagulants; Z79.02 Long term (current) use of antithrombotics/antiplatelets | CPT/HCPCS: 93284 ==